=== PATIENT | female | born 1990 ===

== ENCOUNTER 2020-01-29 10:40 | Outpatient (REF) | payer MEDICAID, SELFPAY ==
--- NOTE | 2020-01-29 | US_ITS ---
EXAMINATION: US ABDOMEN COMPLETE CLINICAL INFORMATION: Epigastric pain, heartburn. COMPARISON: CT abdomen and pelvis 04/02/2019. TECHNIQUE: Real-time imaging of the abdominal viscera. FINDINGS: PANCREAS: Not well visualized ABDOMINAL AORTA: The proximal, mid, and distal segments are normal in caliber. INFERIOR VENA CAVA: Visualized portions are normal. LIVER: Liver echotexture is slightly increased questionable for mild fatty infiltration. The liver is normal in size. The liver contour is normal. No focal hepatic lesion. There is no intrahepatic biliary duct dilatation seen. GALLBLADDER: Surgically absent. COMMON BILE DUCT: Normal in caliber measuring 0.4 cm in diameter. RIGHT KIDNEY: Normal. No hydronephrosis. No renal calculi or focal parenchymal lesions. The kidney measures 12.6 cm in maximum dimension. LEFT KIDNEY: Normal. No hydronephrosis. No renal calculi or focal parenchymal lesions. The kidney measures 12.1 cm in maximum dimension. SPLEEN: Normal. The spleen measures 12.1 cm in maximum dimension. FREE FLUID: None. US/US abdomen complete IMPRESSION: Slightly echogenic liver probably representing fatty infiltration. Postcholecystectomy. Nonvisualization of the pancreas. Otherwise unremarkable exam.
== END 2020-01-29 10:41 | disposition home or self-care (01) ==
LOC: HO.US 10:40
PROVIDERS: Visit Provider Registered Nurse
DX: R10.13 Epigastric pain (principal)
CPT/HCPCS: 76700

== ENCOUNTER 2020-01-30 10:45 | Outpatient (REF) | payer MEDICAID, SELFPAY | END 2020-01-30 10:46 | disposition home or self-care (01) | LOC: HO.MDS 10:45 | PROVIDERS: PCP Registered Nurse; Visit Provider Internal Medicine Medical Oncology | DX: D50.9 Iron deficiency anemia, unspecified (principal) | CPT/HCPCS: 96365; 96366; J1200; J1750; Q0163 ==

== ENCOUNTER → 2020-04-02 12:35 | Outpatient (BNVA) | payer MEDICAID, SELFPAY | PROVIDERS: PCP Registered Nurse; Visit Provider Physician Assistant ==

== ENCOUNTER → 2020-04-10 11:45 | Outpatient (BNVA) | payer MEDICAID, SELFPAY | PROVIDERS: PCP Registered Nurse; Visit Provider Physician Assistant ==

== ENCOUNTER → 2020-06-05 13:22 | Outpatient (BNVA) | payer MEDICAID, SELFPAY | PROVIDERS: PCP Registered Nurse; Visit Provider Physician Assistant ==

== ENCOUNTER 2020-06-23 12:13 | Outpatient (REF) | payer MEDICAID, SELFPAY ==
[2020-06-23 12:58] LABS: Basophils Percent Auto 0.3 % (0-2); Hemoglobin 11.3 g/dl (12.0-16.0); Imm Gran Abs Auto 0.02 X10*3/uL (0.00-0.03); Imm Gran Pct Auto 0.3 % (0.0-0.4); Lymphocytes Absolute Auto 1.8 X10*3/uL (1.2-4.9)
[2020-06-23 13:00] LABS: Eosinophils Absolute Auto 0.1 X10*3/uL (0.0-0.4); Eosinophils Percent Auto 2.1 % (0-4); Hematocrit 35.1 % (37-47); Lymphocytes Percent Auto 26.3 % (20-40); Mean Corpuscular HGB Conc 32.2 g/dl (31.0-35.0); Mean Corpuscular Hemoglobin 30.6 pg (27.0-33.0); Mean Corpuscular Volume 95.1 fL (80-98); Mean Platelet Volume 12.8 fL (9.4-12.3); Monocytes Absolute Auto 0.5 X10*3/uL (0.1-1.2); Monocytes Percent Auto 7.2 % (2-11); Neutrophils Absolute Auto 4.2 X10*3/uL (2.0-8.3); Neutrophils Percent Auto 63.8 % (45-73); Platelet Count 155 X10*3/uL (160-400); Red Blood Count 3.69 X10*6/uL (4.20-5.50); Red Cell Distribution Width 12.6 % (11.0-16.0); White Blood Count 6.7 X10*3/uL (4.8-10.8)
[2020-06-23 13:25] LABS: Alanine Aminotransferase 31 U/L (0-31); Albumin Level 3.9 g/dL (3.5-5.0); Alkaline Phosphatase 106 U/L (39-117); Anion Gap 11 (12-20); Aspartate Amino Transferase 16 U/L (5-31); Bilirubin Total 0.2 mg/dL (0.0-1.0); Blood Urea Nitrogen 7 mg/dL (9-16); C Reactive Protein 0.38 mg/dL (< or = 0.50); Calcium 9.2 mg/dL (8.4-10.2); Carbon Dioxide 24 mmol/L (22-29); Chloride 109 mmol/L (96-108); Estimated Glomerular Filt Rate > 60; Glucose Random 109 mg/dL (60-115); Iron 38 mcg/dL (30-160); Percent Iron Saturation 13 % (15-50); Potassium 3.8 mmol/L (3.3-5.1); Sodium 140 mmol/L (135-145); Total Iron Binding Capacity 291 mcg/dL (228-428); Total Protein 6.5 g/dL (6.5-8.0); Unsaturated Iron Binding 253 ug/dL
[2020-06-23 13:41] LABS: Erythrocyte Sedimentation Rate 16 MM/HR (0-20)
[2020-06-23 13:46] LABS: Ferritin 64 ng/mL (10-122); HCG Quantitative < 2 mIU/mL
[2020-06-27 15:26] LABS: Transglutaminase IgA 1 U/mL
[2020-07-03 17:02] LABS: Endomysial IgA Antibody Negative (Negative)
== END 2020-06-23 12:14 | disposition home or self-care (01) ==
LOC: HO.LAB 12:13
PROVIDERS: Absent Provider Physician Assistant; Visit Provider Internal Medicine Medical Oncology
DX: K52.9 Noninfective gastroenteritis and colitis, unspecified (principal); R74.01 Elevation of levels of liver transaminase levels; R10.11 Right upper quadrant pain; D64.9 Anemia, unspecified; R11.0 Nausea
CPT/HCPCS: 36415; 80053; 82728; 83516; 83540; 84702; 85025; 85652; 86140; 86255; 86256

== ENCOUNTER → 2020-07-14 12:15 | Outpatient (BNVA) | payer MEDICAID, SELFPAY | PROVIDERS: Visit Provider Physician Assistant ==

== ENCOUNTER 2021-12-14 10:40 | Outpatient (REF) | payer MEDICAID, SELFPAY ==
--- NOTE | ~2021-12-14 | XR_ITS ---
EXAMINATION: XR CHEST CLINICAL INFORMATION: Abdominal pain COMPARISON: None TECHNIQUE: 2 views of the chest were obtained. FINDINGS: No significant abnormality is noted involving the heart, lungs, mediastinum, bony thorax or soft tissues. XR/XR chest 2V IMPRESSION: Unremarkable examination.
--- NOTE | ~2021-12-14 | XR_ITS ---
EXAMINATION: XR ABDOMEN KUB CLINICAL INDICATION: Abdominal pain COMPARISON: None TECHNIQUE: AP view of the abdomen. FINDINGS: Stool in the colon questionable for mild constipation. No dilated loops of bowel to suggest obstruction. Small pelvic calcifications suggestive of calcified phleboliths. Postcholecystectomy. Bony structures are unremarkable. XR/XR KUB IMPRESSION: Question mild constipation. Otherwise unremarkable exam.
== END 2021-12-14 10:41 | disposition home or self-care (01) ==
LOC: HO.XRAY 10:40
PROVIDERS: PCP Registered Nurse; Visit Provider Registered Nurse
DX: R10.9 Unspecified abdominal pain (principal)
CPT/HCPCS: 71046; 74018

== ENCOUNTER → 2021-12-24 13:58 | Outpatient (BNVA) | payer MEDICAID, SELFPAY | PROVIDERS: PCP Registered Nurse; Visit Provider Physician Assistant | DX: K21.9 Gastro-esophageal reflux disease without esophagitis (principal) | CPT/HCPCS: 99202 ==

== ENCOUNTER 2022-01-14 12:02 | Outpatient (REF) | payer MEDICAID, SELFPAY | END 2022-01-14 12:03 | disposition home or self-care (01) | LOC: HO.LNP 12:02 | PROVIDERS: Visit Provider Physician Assistant | DX: A04.8 Other specified bacterial intestinal infections (principal); K21.9 Gastro-esophageal reflux disease without esophagitis | CPT/HCPCS: 87338; 99212 ==

== ENCOUNTER 2022-07-07 17:09 | Emergency (ER) | payer MEDICAID, SELFPAY ==
[2022-07-07 17:31] VITALS: BP 120/63; PULSE 81; RESP 18; TEMP 36.8; O2SAT 99; BMI 31.6
--- NOTE | 2022-07-07 17:52 | ED_ITS ---
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 Patient states she is now tolerating water. She then goes on to have complaints of full body discomfort with back pain that she states is chronic in nature and she overall feels weak . Related Data Previous Rx's Medication Instructions Recorded omeprazole 20 mg capsule,delayed 20 mg PO DAILY #30 caps 12/24/21 release ondansetron HCl 4 mg tablet 4 mg PO Q8H PRN nausea and 07/08/22 vomiting 4 days #10 tabs Allergies Allergy/AdvReac Type Severity Reaction Status Date / Time No Known Allergies Allergy Verified 12/24/21 14:03 Review of Systems Review of Systems: Pertinent positives and negatives as stated in HPI PMFSH Past Medical History Source: nursing notes reviewed Medical History Anemia Cholecystectomy planned Chronic diarrhea GERD (gastroesophageal reflux disease) Vitamin C deficiency Vitamin D deficiency Surgical History Hx of cholecystectomy Social History Social History Household Members: Spouse and Children Alcohol intake: current Alcohol intake frequency: does not drink Alcohol type: hard liquor Patient Tobacco Use Status: Current someday Tobacco user Cigarettes Per Day: 1 Current occupational status: unemployed Physical Exam Vital Signs: Vital Signs: Last Vital Signs Temp 98.4 F 07/08/22 00:03 Pulse 101 H 07/08/22 00:03 Resp 16 07/08/22 00:03 BP 96/46 L 07/08/22 00:03 Pulse Ox 99 07/08/22 00:03 O2 Del Method Room Air 07/08/22 00:03 BMI result Body Mass Index 31.6 VITAL SIGNS: Reviewed. GENERAL: Well developed, well nourished, in no acute distress. HEAD: Normocephalic/atraumatic EYES: PERRLA, EOMI EARS: Ext canals without abnormality NOSE: Nares patent bilateral OROPHARYNX: no oral lesions noted, posterior pharynx clear NECK: Supple, no adenopathy LUNGS: Normal breath sounds. No adventitious sounds or accessory muscle use. Sp O2<99> CARDIOVASCULAR: Regular rate and rhythm without noted murmurs ABDOMEN: Soft, non-tender, non-distended with bowel sounds. MUSCULOSKELETAL: No tenderness, deformities, or effusions noted on gross inspection. EXTREMITIES: No cyanosis, clubbing or edema. SKIN: Inspection of the skin reveals no rashes NEUROLOGIC: Alert and oriented x 4. Strength and sensation to light touch were grossly intact x 4. Course Course Course Narrative: This is an RME: Additional HPI, ROS, PE not included below will be deferred to primary provider. This is a 13-hxx[age]-female, hx of nephrolithiasis and cholescytectomy, presenting for abdominal pain, nausea, vomiting, and diarrhea x 3 days. Children were sick with nausea/vomiting/diarrhea/fevers 1.5 weeks ago. VSS. No urinary symptoms. Plan: Labs, UA ordered. Medications Administered Discontinued Medications Generic Name Dose Route Start Last Admin Trade Name Freq PRN Reason Stop Dose Admin Acetaminophen 975 mg 07/07/22 22:45 07/07/22 23:24 Acetaminophen 325 Mg Tablet PO 07/07/22 22:46 975 mg ONCE ONE Administration Ketorolac Tromethamine 15 mg 07/07/22 23:13 07/07/22 23:23 Ketorolac Tromethamine 15 Mg/Ml Vial IM 07/07/22 23:14 15 mg ONCE ONE Administration Lidocaine 1 patch 07/07/22 22:45 07/07/22 23:24 Lidocaine 4 % Patch Adh..Patch TRANSDERMA 07/07/22 22:46 1 patch ONCE ONE Administration Protocol Ondansetron HCl 4 mg 07/07/22 22:45 07/07/22 23:25 Ondansetron Odt 4 Mg Tab.Rapdis TRANSLINGU 07/07/22 22:46 4 mg ONCE ONE Administration Medical Decision Making Medical Decision Making MDM Narrative: This is a 32-year-old female who presents with chronic back pain, I do not see any recent emergency room visits, this back pain is atraumatic in nature and she denies any urinary symptoms but has been ask for urinary sample. She is afebrile denies any IVDA. I reviewed all lab work and there are no acute findings to better explain patient's presentation. She has a bottle of water that has been completely finished at her bedside. She is been asked to provide a urine sample but is requesting pain medication. After I completed my evaluation she informed the welding operator that at other facilities she gets morphine. I reviewed all laboratory work, urinalysis is negative for evidence of acute in fection and patient appears to be much more comfortable after having received combination analgesics and lidocaine patch. She is otherwise discharged home with instructions follow-up with her primary care provider. And is presumptively being treated for viral gastroenteritis. Differential Diagnosis Please see the discussion above Lab Data Please see the discussion above 07/07/22 19:15 07/07/22 19:15 Labs: Lab Results 07/07/22 07/07/22 07/08/22 Range/Units 19:15 19:15 00:23 WBC 6.1 (4.8-10.8) X10*3/uL RBC 4.32 (4.20-5.50) X10*6/uL Hgb 12.8 (12.0-16.0) g/dl Hct 39.0 (37.0-47.0) % MCV 90.3 (80.0-98.0) fL MCH 29.6 (27.0-33.0) pg MCHC 32.8 (31.0-35.0) g/dl RDW 12.9 (11.0-16.0) % Plt Count 181 (160-400) X10*3/uL MPV 11.8 (9.4-12.3) fL Immature Gran % (Auto) 0.3 (0.0-0.4) % Neut % (Auto) 86.2 H (45-73) % Lymph % (Auto) 9.0 L (20-40) % [place] % (Auto) 3.0 (2-11) % Eos % (Auto) 1.3 (0-4) % Baso % (Auto) 0.2 (0-2) % Lymph # (Auto) 0.6 L (1.2-4.9) X10*3/uL [place] # (Auto) 0.2 (0.1-1.2) X10*3/uL Eos # (Auto) 0.1 (0.0-0.4) X10*3/uL Baso # (Auto) 0.0 (0.0-0.2) X10*3/uL Abs Immat Gran (auto) 0.02 (0.00-0.03) X10*3/uL Absolute Neuts (auto) 5.3 (2.0-8.3) x10*3/uL Absolute Nucleated RBC 0.000 (0.0-0.012) X10*3/uL Nucleated RBC % (auto) 0.0 (0.0-0.2) /100WBC Sodium 140 (135-145) mmol/L Potassium 3.9 (3.3-5.1) mmol/L Chloride 108 (96-108) mmol/L Carbon Dioxide 24 (22-29) mmol/L Anion Gap 12 (12-20) BUN 9 (9-16) mg/dL Creatinine 0.70 (0.5-1.4) mg/dL Estim Creat Clear Calc 148.9 Estimated GFR > 60 Random Glucose 102 (60-115) mg/dL Calcium 9.8 D (8.4-10.2) mg/dL Magnesium 1.8 (1.6-2.6) mg/dL Total Bilirubin 0.4 (0.0-1.0) mg/dL Direct Bilirubin 0.1 (0.0-0.5) mg/dL AST 18 (5-31) U/L ALT 18 (0-31) U/L Alkaline Phosphatase 94 (39-117) U/L Total Protein 7.1 (6.5-8.0) g/dL Albumin 4.0 (3.5-5.0) g/dL Lipase 21 (8-78) U/L Beta HCG, Quant < 2 mIU/mL Urine Color Yellow Urine Appearance Clear Urine pH 5.5 (5.0-9.0) Ur Specific [place] 1.025 (1.005-1.025) Urine Protein Trace (Neg-Trace) mg/dL Urine Glucose (UA) Negative (Negative) mg/dL Urine Ketones 40 (Negative) mg/dL Urine Blood Negative (Negative) Urine Nitrite Negative (Negative) Ur Leukocyte Esterase Negative (Negative) Independent Interpretation I performed an independent interpretation of an: EKG Interpretation: Sinus tachycardia, HR-101, no STEMI, PA/QRS/QTC is within normal limits. Discharge Plan Discharge Clinical Impression: Chronic back pain, Gastroenteritis Patient Disposition: Home, Self-Care Instructions: Gastroenteritis (ED), Back Pain (ED), Lower Back Exercises (ED) Additional Instructions: 1. Resume all home medications to include your antacid medication. 2. Tylenol 1000 mg, orally, every 6 hours as needed for pain control. Do not exceed 4000 mg within 24 hours. 3. I have given you a prescription for antinausea medication and you should use is to continue to rehydrate yourself. 4. Ibuprofen 400 mg, orally with milk or food, every 6 hours as needed for pain control. 5. Please follow-up with your primary care provider in the next 1-2 days. Return to the ER for any worsening symptoms. Prescriptions: New ondansetron HCl 4 mg tablet 4 mg PO Q8H PRN (Reason: nausea and vomiting) 4 Days Qty: 10 0RF No Action omeprazole 20 mg capsule,delayed release(DR/EC) 20 mg PO DAILY Qty: 30 5RF
[2022-07-07 19:22] LABS: MANUAL DIFF FLAG NO
[2022-07-07 19:25] LABS: Basophils Percent Auto 0.2 % (0-2); Eosinophils Absolute Auto 0.1 X10*3/uL (0.0-0.4); Eosinophils Percent Auto 1.3 % (0-4); Hemoglobin 12.8 g/dl (12.0-16.0); Imm Gran Abs Auto 0.02 X10*3/uL (0.00-0.03); Imm Gran Pct Auto 0.3 % (0.0-0.4); Lymphocytes Absolute Auto 0.6 X10*3/uL (1.2-4.9); Mean Corpuscular HGB Conc 32.8 g/dl (31.0-35.0); Mean Corpuscular Hemoglobin 29.6 pg (27.0-33.0); Mean Corpuscular Volume 90.3 fL (80.0-98.0); Mean Platelet Volume 11.8 fL (9.4-12.3); Monocytes Absolute Auto 0.2 X10*3/uL (0.1-1.2); Neutrophils Absolute Auto 5.3 x10*3/uL (2.0-8.3); Neutrophils Percent Auto 86.2 % (45-73); Platelet Count 181 X10*3/uL (160-400); Red Blood Count 4.32 X10*6/uL (4.20-5.50); Red Cell Distribution Width 12.9 % (11.0-16.0); White Blood Count 6.1 X10*3/uL (4.8-10.8)
[2022-07-07 19:41] LABS: Alanine Aminotransferase 18 U/L (0-31); Alkaline Phosphatase 94 U/L (39-117); Anion Gap 12 (12-20); Aspartate Amino Transferase 18 U/L (5-31); Bilirubin Direct 0.1 mg/dL (0.0-0.5); Bilirubin Total 0.4 mg/dL (0.0-1.0); Blood Urea Nitrogen 9 mg/dL (9-16); Calcium 9.8 mg/dL (8.4-10.2); Carbon Dioxide 24 mmol/L (22-29); Chloride 108 mmol/L (96-108); Creatinine Clr Calc Pharmacy 148.9; Estimated Glomerular Filt Rate > 60; Glucose Random 102 mg/dL (60-115); Magnesium 1.8 mg/dL (1.6-2.6); Potassium 3.9 mmol/L (3.3-5.1); Sodium 140 mmol/L (135-145); Total Protein 7.1 g/dL (6.5-8.0)
[2022-07-07 20:12] LABS: Lipase 21 U/L (8-78)
--- NOTE | 2022-07-07 21:34 | ECG_ITS ---
Test Reason : CHEST PAIN Blood Pressure : / mmHG Vent. Rate : 101 BPM Atrial Rate : 101 BPM P-R Int : 166 ms QRS Dur : 088 ms QT Int : 348 ms P-R-T Axes : 062 -10 045 degrees QTc Int : 451 ms Sinus tachycardia Otherwise normal ECG No previous ECGs available Referred By: Generic ED Physician Electronically Signed By:KALPESH FRY MD
--- NOTE | 2022-07-07 21:34 | PC.NURSE ---
pt was found on the floor in the waiting room bathroom. pt states she did hit her head. pt is alert and oriented x3 no injury noted.
--- NOTE | 2022-07-07 22:20 | PC.NURSE ---
PT C/O ABD PAIN X 2 DAYS WITH N/V. WAS IN WR, EXPERIENCED A FALL FELT WEAK AND LEGS GAVE OUT DENIES SYNCOPE. REPORTEDLY, WHEN STAFF ARRIVED, PT WAS ON THE FLOOR. PLACED IN HALLWAY BED, PT REQUESTING FLUIDS, ADVISED SHE WILL REMAIN NPO UNTIL EVALUATED BY A PROVIDER. REPORTS GENERALIZED PAIN.
[2022-07-07 23:01] LABS: HCG Quantitative < 2 mIU/mL
[2022-07-07] MEDS: Ketorolac Tromethamine 15 MG/ML VIAL IM (23:23)
[2022-07-07] MEDS: Acetaminophen 325 MG TABLET 975 MG PO (23:24)
[2022-07-07] MEDS: Lidocaine 4 % Patch ADH..PATCH 1 PATCH TRANSDERMA (23:24)
[2022-07-07] MEDS: Ondansetron ODT 4 MG TAB.RAPDIS TRANSLINGU (23:25)
--- NOTE | 2022-07-07 23:30 | PC.NURSE ---
Pt ca&ox3, no signs of distress. Pt reports 10/10 lower back pain. Pt medicated per apr. Will continue to monitor.
[2022-07-08 00:03] VITALS: BP 96/46; PULSE 101; RESP 16; TEMP 36.9; O2SAT 99
[2022-07-08 00:31] LABS: Appearance Urine Clear; Color Urine Yellow; Glucose Urine UA Negative (Negative); Leukocyte Esterase Urine Negative (Negative); Nitrite Urine Negative (Negative); PH 5.5 (5.0-9.0); Specific Gravity - Urine 1.025 (1.005-1.025); Urine Blood Negative (Negative); Urine Ketones 40 mg/dL (Negative); Urine Protein Trace mg/dL (Neg-Trace)
--- NOTE | 2022-07-08 00:42 | PC.NURSE ---
Pt resting comfortably, reports 7/10 pain. No signs of distress. Will continue to monitor.
== END 2022-07-08 01:25 | disposition home or self-care (01) ==
PROVIDERS: Physician Assistant Medical; Emergency Provider Student in an Organized Health Care Education/Training Program
DX: G89.29 Other chronic pain (principal); M54.50 Low back pain, unspecified; K52.9 Noninfective gastroenteritis and colitis, unspecified; R11.2 Nausea with vomiting, unspecified; F17.210 Nicotine dependence, cigarettes, uncomplicated
CPT/HCPCS: 36415; 80048; 80076; 81003; 83690; 83735; 84702; 85025; 93005; 96372; 99284; 99285; J1885

== ENCOUNTER 2022-10-28 11:19 | Outpatient (REF) | payer MEDICAID, SELFPAY ==
[2022-10-28 13:01] LABS: MANUAL DIFF FLAG NO
[2022-10-28 13:34] LABS: Basophils Absolute Auto 0.1 X10*3/uL (0.0-0.2); Basophils Percent Auto 0.6 % (0-2); Eosinophils Absolute Auto 0.2 X10*3/uL (0.0-0.4); Eosinophils Percent Auto 2.7 % (0-4); Hematocrit 38.4 % (37.0-47.0); Hemoglobin 12.8 g/dl (12.0-16.0); Imm Gran Abs Auto 0.03 X10*3/uL (0.00-0.03); Imm Gran Pct Auto 0.4 % (0.0-0.4); Lymphocytes Absolute Auto 2.2 X10*3/uL (1.2-4.9); Lymphocytes Percent Auto 26.2 % (20-40); Mean Corpuscular HGB Conc 33.3 g/dl (31.0-35.0); Mean Corpuscular Hemoglobin 30.4 pg (27.0-33.0); Mean Corpuscular Volume 91.2 fL (80.0-98.0); Mean Platelet Volume 13.1 fL (9.4-12.3); Monocytes Absolute Auto 0.6 X10*3/uL (0.1-1.2); Monocytes Percent Auto 6.6 % (2-11); Neutrophils Absolute Auto 5.3 x10*3/uL (2.0-8.3); Neutrophils Percent Auto 63.5 % (45-73); Platelet Count 191 X10*3/uL (160-400); Red Blood Count 4.21 X10*6/uL (4.20-5.50); White Blood Count 8.3 X10*3/uL (4.8-10.8)
[2022-10-28 13:35] LABS: Estimated Average Glucose 108 mg/dL; Hemoglobin A1c % 5.4 % (<6.0)
[2022-10-28 13:39] LABS: Iron 50 mcg/dL (30-160); Percent Iron Saturation 14 % (15-50); Total Iron Binding Capacity 348 mcg/dL (228-428); Unsaturated Iron Binding 298 ug/dL
[2022-10-28 13:47] LABS: Ferritin 31 ng/mL (10-122)
== END 2022-10-28 11:20 | disposition home or self-care (01) ==
LOC: HO.HHCL 11:19
PROVIDERS: Visit Provider Registered Nurse
DX: Z00.00 Encounter for general adult medical examination without abnormal findings (principal); D50.0 Iron deficiency anemia secondary to blood loss (chronic)
CPT/HCPCS: 36415; 82728; 83036; 83540; 85025

== ENCOUNTER 2023-01-14 14:55 | Outpatient (REF) | payer MEDICAID, SELFPAY ==
[2023-01-14 16:03] LABS: MANUAL DIFF FLAG NO
[2023-01-14 16:16] LABS: Basophils Percent Auto 0.3 % (0-2); Eosinophils Absolute Auto 0.3 X10*3/uL (0.0-0.4); Eosinophils Percent Auto 2.6 % (0-4); Hematocrit 38.1 % (37.0-47.0); Hemoglobin 12.4 g/dl (12.0-16.0); Imm Gran Abs Auto 0.03 X10*3/uL (0.00-0.03); Imm Gran Pct Auto 0.3 % (0.0-0.4); Lymphocytes Absolute Auto 2.6 X10*3/uL (1.2-4.9); Lymphocytes Percent Auto 26.6 % (20-40); Mean Corpuscular HGB Conc 32.5 g/dl (31.0-35.0); Mean Platelet Volume 13.2 fL (9.4-12.3); Monocytes Absolute Auto 0.9 X10*3/uL (0.1-1.2); Monocytes Percent Auto 8.9 % (2-11); Neutrophils Absolute Auto 5.9 x10*3/uL (2.0-8.3); Neutrophils Percent Auto 61.3 % (45-73); Platelet Count 172 X10*3/uL (160-400); Red Blood Count 4.14 X10*6/uL (4.20-5.50); Red Cell Distribution Width 12.9 % (11.0-16.0); White Blood Count 9.6 X10*3/uL (4.8-10.8)
[2023-01-14 17:03] LABS: Alanine Aminotransferase 17 U/L (0-31); Alkaline Phosphatase 106 U/L (39-117); Anion Gap 9 (12-20); Aspartate Amino Transferase 14 U/L (5-31); Bilirubin Total 0.4 mg/dL (0.0-1.0); Blood Urea Nitrogen 13 mg/dL (9-16); Calcium 9.9 mg/dL (8.4-10.2); Carbon Dioxide 27 mmol/L (22-29); Chloride 108 mmol/L (96-108); Estimated Glomerular Filt Rate > 60; Glucose Random 71 mg/dL (60-115); Potassium 3.5 mmol/L (3.3-5.1); Sodium 140 mmol/L (135-145); Total Protein 7.4 g/dL (6.5-8.0)
[2023-01-14 17:17] LABS: TSH reflex Free T4 0.83 uIU/mL (0.32-4.0)
== END 2023-01-14 14:56 | disposition home or self-care (01) ==
LOC: HO.HHCL 14:55
PROVIDERS: Visit Provider Nurse Practitioner
DX: E66.3 Overweight (principal); D50.0 Iron deficiency anemia secondary to blood loss (chronic); R53.83 Other fatigue
CPT/HCPCS: 36415; 80053; 84443; 85025

== ENCOUNTER 2023-07-22 14:45 | Outpatient (REF) | payer MEDICAID, SELFPAY ==
[2023-07-22 16:17] LABS: MANUAL DIFF FLAG NO
[2023-07-22 16:20] LABS: Basophils Percent Auto 0.6 % (0-2); Eosinophils Absolute Auto 0.2 X10*3/uL (0.0-0.4); Eosinophils Percent Auto 3.2 % (0-4); Hematocrit 37.5 % (37.0-47.0); Hemoglobin 12.5 g/dl (12.0-16.0); Imm Gran Abs Auto 0.01 X10*3/uL (0.00-0.03); Imm Gran Pct Auto 0.1 % (0.0-0.4); Lymphocytes Absolute Auto 2.7 X10*3/uL (1.2-4.9); Lymphocytes Percent Auto 37.4 % (20-40); Mean Corpuscular HGB Conc 33.3 g/dl (31.0-35.0); Mean Corpuscular Hemoglobin 30.6 pg (27.0-33.0); Mean Corpuscular Volume 91.9 fL (80.0-98.0); Mean Platelet Volume 12.9 fL (9.4-12.3); Monocytes Absolute Auto 0.5 X10*3/uL (0.1-1.2); Monocytes Percent Auto 6.7 % (2-11); Neutrophils Absolute Auto 3.7 x10*3/uL (2.0-8.3); Platelet Count 181 X10*3/uL (160-400); Red Blood Count 4.08 X10*6/uL (4.20-5.50); Red Cell Distribution Width 13.6 % (11.0-16.0); White Blood Count 7.1 X10*3/uL (4.8-10.8)
[2023-07-22 16:40] LABS: Estimated Average Glucose 108 mg/dL; Hemoglobin A1c % 5.4 % (<6.0)
[2023-07-22 16:59] LABS: Anion Gap 12 (12-20); Blood Urea Nitrogen 8 mg/dL (9-16); Calcium 10.1 mg/dL (8.4-10.2); Carbon Dioxide 25 mmol/L (22-29); Chloride 107 mmol/L (96-108); Estimated Glomerular Filt Rate > 60; Glucose Random 82 mg/dL (60-115); Potassium 3.5 mmol/L (3.3-5.1); Sodium 140 mmol/L (135-145)
[2023-07-22 17:14] LABS: TSH reflex Free T4 0.63 uIU/mL (0.32-4.0)
== END 2023-07-22 14:46 | disposition home or self-care (01) ==
LOC: HO.HHCL 14:45
PROVIDERS: Visit Provider Nurse Practitioner
DX: R53.1 Weakness (principal)
CPT/HCPCS: 36415; 80048; 83036; 84443; 85025

== ENCOUNTER → 2023-10-05 13:38 | Outpatient (RCR) | payer MEDICAID, SELFPAY ==
[2020-01-17 10:28] VITALS: BP 111/68; PULSE 83; RESP 18; TEMP 35.8; O2SAT 97; BMI 27.3
[2020-01-17 10:56] LABS: MANUAL DIFF FLAG NO
--- NOTE | 2020-01-17 11:02 | MHC.HEMONC ---
Patient seen today for consult. In house assistant sales center manager used. Provider seen patient. Labs drawn. IV Iron Dextran ordered. Awaiting lab results. Will call the patient with date for infusion when booked.
[2020-01-17 11:04] LABS: Basophils Percent Auto 0.5 % (0-2); Eosinophils Absolute Auto 0.1 X10*3/uL (0.0-0.4); Eosinophils Percent Auto 1.8 % (0-4); Hematocrit 33.2 % (37-47); Imm Gran Abs Auto 0.01 X10*3/uL (0.00-0.03); Imm Gran Pct Auto 0.2 % (0.0-0.4); Lymphocytes Absolute Auto 1.6 X10*3/uL (1.2-4.9); Lymphocytes Percent Auto 25.8 % (20-40); Mean Corpuscular HGB Conc 30.1 g/dl (31.0-35.0); Mean Corpuscular Hemoglobin 23.9 pg (27.0-33.0); Mean Corpuscular Volume 79.2 fL (80-98); Mean Platelet Volume 12.1 fL (9.4-12.3); Monocytes Absolute Auto 0.5 X10*3/uL (0.1-1.2); Monocytes Percent Auto 7.4 % (2-11); Neutrophils Absolute Auto 3.9 X10*3/uL (2.0-8.3); Neutrophils Percent Auto 64.3 % (45-73); Platelet Count 244 X10*3/uL (160-400); Red Blood Count 4.19 X10*6/uL (4.20-5.50); Red Cell Distribution Width 19.3 % (11.0-16.0); White Blood Count 6.1 X10*3/uL (4.8-10.8)
[2020-01-17 11:58] LABS: Alanine Aminotransferase 11 U/L (0-31); Albumin Level 4.1 g/dL (3.5-5.0); Alkaline Phosphatase 103 U/L (39-117); Anion Gap 13 (12-20); Aspartate Amino Transferase 13 U/L (5-31); Bilirubin Total 0.3 mg/dL (0.0-1.0); Blood Urea Nitrogen 10 mg/dL (9-16); Calcium 9.2 mg/dL (8.4-10.2); Carbon Dioxide 25 mmol/L (22-29); Chloride 106 mmol/L (96-108); Estimated Glomerular Filt Rate > 60; Glucose Random 92 mg/dL (60-115); Iron 15 mcg/dL (30-160); Percent Iron Saturation 3 % (15-50); Potassium 4.3 mmol/l (3.3-5.1); Sodium 140 mmol/L (135-145); Total Iron Binding Capacity 489 mcg/dL (228-428); Unsaturated Iron Binding 474 ug/dL
[2020-01-17 12:21] LABS: Ferritin 2 ng/mL (10-122)
--- NOTE | 2020-01-17 13:35 | PM.HEMONCCN ---
Subjective - Subjective Consult date: 01/17/20 Requesting Physician: KYLIE WEBB. Primary Care Provider: Kylie Anderson NP Medical Summary: DIAGNOSIS: IRON DEFICIENCY ANEMIA. HPI - Consult Narrative Narrative: Sari Ray is a pleasant 29 year old lady who has been really fatigued for almost a year now. She does not have a good appetite. She has lost a couple of lb. She has craving for ice. She complains of nausea but no vomiting. She has acid reflux. She has diarrhea. Her periods used to be heavy however she had an IUD placed back in September since then she has just been spotting. Review of her labs from April 02: WBC 7.6 (Apr 02 ABS NEUT COUNT 4.6 (Apr 02 RBC 3.84 L (Apr 02 HGB 11.4 L (Apr 02 HCT 33.9 L (Apr 02 MCV 88.4 (Apr 02 MCH 29.7 (Apr 02 MCHC 33.6 (Apr [address] 164 (Apr 02. 12/03: WBC 5.9, HGB 9.4, HCT 31.1, PLT 218. Iron studies: 38/480/09/09. B12: 340. Folate: 9. She was given oral iron however when she tries to swallow it causes nausea and vomiting. She has not been able to tolerate it. Review of Systems - Constitutional Reports anorexia, Reports fatigue, Reports lack of energy, Reports poor appetite, Reports weight loss, Denies fever(s) - Eyes Reports system reviewed and no additional complaints, except as documented - ENT Reports system reviewed and no additional complaints, except as documented - Cardiovascular Reports system reviewed and no additional complaints, except as documented - Respiratory Reports no additional respiratory complaints - Gastrointestinal Reports belching, Reports bloating, Reports change in bowel habits, Reports diarrhea, Reports nausea, Denies bright, red blood in stools - Genitourinary Reports no additional female genitourinary complaints - Musculoskeletal Reports joint pain - Integumentary/Breasts Skin/Breast: Reports itching - Neurologic Reports system reviewed and no additional complaints, except as documented - Psychiatric Reports system reviewed and no additional complaints, except as documented - Endocrine Reports no additional endocrine complaints - Hematologic/Lymphatic Reports system reviewed and no additional complaints, except as documented - Allergic/Immunologic Reports system reviewed and no additional complaints, except as documented PMFSH Medical History: Medical History (Last Updated 01/17/20 @ 10:26 by Alee Osorio RN) Anemia Cholecystectomy planned GERD (gastroesophageal reflux disease) Vitamin C deficiency Vitamin D deficiency Functional capacity: independent ambulation Patient : No Home Medications and Allergies Home Medications Medication Instructions Recorded Confirmed Type Vitamin D3 1 tab PO DAILY 01/17/20 01/17/20 History ascorbic acid (vitamin C) [Vitamin 250 mg PO BID 01/17/20 01/17/20 History C] docusate sodium [Colace] 100 mg PO DAILY 01/17/20 01/17/20 History Allergies Allergy/AdvReac Type Severity Reaction Status Date / Time No Known Allergies Allergy Unverified 10/25/19 19:46 Physical Exam Vital signs: Vital Signs Temp 96.4 F L 01/17/20 10:28 Pulse 83 01/17/20 10:28 Resp 18 01/17/20 10:28 BP 111/68 01/17/20 10:28 Pulse Ox 97 01/17/20 10:28 Intake & Output 01/16/20 01/17/20 01/17/20 18:59 06:59 18:59 Other: Weight 96.4 kg Weight 96.4 kg - Constitutional Present: no acute distress, mild distress - Routine HEENT Exam Head: Present: normal inspection ENT: Present: mucous membranes moist - Routine Neck Exam Present: supple - Routine Respiratory Exam Present: CTAB - Routine Cardiovascular Exam Cardiovascular: Present: RRR, S1, S2 - Routine Abdominal Exam Present: soft, nontender - Routine Rectal Exam Patient deferred: digital exam - Routine Extremities Exam Present: nontender - Routine Skin Exam Present: intact - Routine Neurological Exam Present: alert, oriented X3 - Detailed Neurological Exam: Coma Scale Eye Opening: Spontaneous (4) Verbal Response: Oriented (5) Motor Response: Obeys commands (6) Gregorio Coma Scale Total: 15 - Routine Psychiatric Exam Present: normal affect Hem/Onc Consult Result - Labs CBC & Chem 7: 01/17/20 10:50 01/17/20 10:50 Labs: Short CBC 01/17/20 Range/Units 10:50 WBC 6.1 (4.8-10.8) X10*3/uL Hgb 10.0 L (12.0-16.0) g/dl Hct 33.2 L (37-47) % Plt Count 244 (160-400) X10*3/uL BMP 01/17/20 10:50 Sodium 140 Potassium 4.3 Chloride 106 Carbon Dioxide 25 BUN 10 Creatinine 0.67 Calcium 9.2 Liver Function 01/17/20 Range/Units 10:50 Total Bilirubin 0.3 (0.0-1.0) mg/dL AST 13 (5-31) U/L ALT 11 (0-31) U/L Alkaline Phosphatase 103 (39-117) U/L Albumin 4.1 (3.5-5.0) g/dL Assessment and Plan (1) Iron (Fe) deficiency anemia Status: Acute This is a pleasant 29-year-old lady with history of Microcytic Hypochromic Anemia. Iron studies are consistent with iron deficiency anemia. Diagnosis most likely is iron deficiency anemia: She does have a history of heavy periods, that is most likely the cause. Her period is normal now however she likely has had a deficit over the past several months and has not been able to replete. She is intolerant to oral iron. DIFFERENTIAL DIAGNOSIS: 2. IRON MALABSORPTION: From something like celiac disease. I checked translucent IgA: Less than 1. 3. HEMOLYTIC ANEMIA: Hemolytic Screen is normal. 4. B12 FOLATE DEFICIENCY: Levels are normal. PLAN: I repeated her iron studies, they came back low: . Will give her IV iron. I offered her total dose infusion versus Ferrlecit. She picked the former. Will arrange it in short stay in the near future. She will return in 3 months for a follow-up visit. Thank you CC: Dr. Kylie Webb.
[2020-01-20 21:37] LABS: Transglutaminase IgA 1 U/mL
--- NOTE | 2020-01-28 09:31 | MHC.HEMONCMA ---
Patient needs to have IV Dextran, Mauritian speaking only patient, I had Iris call her with the dates, patient chose 01/30/2020 at 8am. I will let Danielle know.
== END | disposition home or self-care (01) ==
LOC: HO.ONC 01-17 10:03
PROVIDERS: PCP Registered Nurse; Referring Provider Registered Nurse; Visit Provider Internal Medicine Medical Oncology
DX: D50.9 Iron deficiency anemia, unspecified (principal)
CPT/HCPCS: 36415; 80053; 82728; 83516; 83540; 85025; 99204

== ENCOUNTER 2023-12-02 11:38 | Outpatient (REF) | payer MEDICAID, SELFPAY ==
--- NOTE | ~2023-12-02 | XR_ITS ---
EXAMINATION: XR CHEST CLINICAL INFORMATION: Shortness of breath. COMPARISON: Chest radiograph dated 12/14/2021. TECHNIQUE: 2 views of the chest were obtained. FINDINGS: The lungs are clear. The cardiomediastinal silhouette is normal in size. There is no pleural effusion or pneumothorax. No acute osseous abnormality. XR/XR chest 2V IMPRESSION: No acute cardiopulmonary findings. Electronically signed by: Neal Ballesteros MD 12/02/2023 12:46 PM EDT
--- NOTE | ~2023-12-02 | XR_ITS ---
EXAMINATION: XR LUMBAR SPINE CLINICAL INFORMATION: Lumbar radiculopathy. COMPARISON: Lumbar spine radiographs dated 03/01/2019. TECHNIQUE: AP, lateral, coned-down, and bilateral oblique views of the lumbar spine. FINDINGS: There is Castellvi type IIA transitional anatomy at the lumbosacral junction. The lumbar lordosis is maintained. No acute fracture or subluxation. No loss of vertebral body height. Mild loss of intervertebral disc height redemonstrated at L5-S1, unchanged. No concerning lytic or blastic osseous lesion. Right upper quadrant surgical clips are redemonstrated. Unremarkable facets. XR/XR lumbar spine 4V min IMPRESSION: 1. Transitional anatomy at the lumbosacral junction. 2. Minimal degenerative disc disease at L5-S1, unchanged. Electronically signed by: Neal Ballesteros MD 12/02/2023 12:49 PM EDT
== END 2023-12-02 11:39 | disposition home or self-care (01) ==
LOC: HO.HHCX 11:38
PROVIDERS: Visit Provider Nurse Practitioner
DX: M54.16 Radiculopathy, lumbar region (principal); R06.02 Shortness of breath
CPT/HCPCS: 71046; 72110

== ENCOUNTER 2024-05-23 16:50 | Outpatient (REF) | payer MEDICAID, SELFPAY ==
--- OUTSIDE RECORDS SUMMARY | 2024-05-23 18:22 | XMS_ITS | Encounter Summary ---
Author Organization [employer] Address [address] [place] [address] Care Team Providers Care Forensic Pathologist Name Role Phone Ninoska Velez NP Primary Care Provider [phone] Reason for Visit * Reason Onset Date Comments Reschedule 07/29/2023 Encounter Details Date Type Department Care Team ([facility] Contact Info) Description 07/29/2023 Telephone [facility] [address] [place] [address] Ninoska Velez NP [address] [place] [address] Reschedule Social History Tobacco Use Types Packs/Day Years Used Date Smoking Tobacco: Never Smokeless Tobacco: Never Alcohol Use Standard Drinks/Week Comments Yes 1 (1 standard drink = 0.6 oz pur e alcohol) once a month Depression Answer Date Recorded Patient Health Questionnaire-9 Score 10 07/22/2023 Patient Health Questionnaire-9 Score 10 07/22/2023 Last PHQ-9: Questionnaire Data Not on file 0 07/22/2023 Housing Stability Answer Date Recorded What is your housing situation today? I have housing today, but I am worried about losing housing in the future 07/22/[address] you li ve. Do you have problems with any of the following? Mold 07/22/2023 Food Insecurity Answer Date Recorded Within the past 12 months, y ou worried that your food would run out before you got money to buy more: Sometimes True 2023 Within the past 12 months,th e food you bought just didn't last and you didn't have enough money to get more: Sometimes True 07/22/2023 Transportation Answer Date Recorded In the past 12 months, has l ack of transportation kept you from medical appts, meetings, work or from getting things needed for daily living? No 07/22/2023 Utilities Answer Date Recorded In the past 12 months, has t he electric, gas, oil or water company threatened to shut off services in your home? Yes 07/22/2023 Depression Answer Date Recorded Patient Health Questionnaire-2 Score 2 07/22/2023 Comments Unknown Sex and Gender Information Value Date Recorded Sex Assigned at Female 12/07/2021 10:36 AM EDT Legal Sex Female 10:36 AM EDT Gender Identity Female 12/07/2021 10:36 AM EDT Sexual Orientation Straight 12/07/2021 10 :36 AM EDT documented as of this encounter Miscellaneous Notes * Telephone Encounter - Isabella Junior - 07/29/2023 3:39 PM EDT Tc from pt requesting to reschedule 07/28 Derm appointment. Please contact pt at [phone] documented in this encounter Plan of Treatment Upcoming Encounters Date Type Department Care Team (Late st Contact Info) Description 06/04/2024 11:00 AM EDT Office Visit [facility] [address] [place] [id number] Ninoska Velez NP [address] [place] [address] 06/25/2024 11:15 AM EDT Office Visit [facility] OPTOM[facility] [address] [place] [address] Hannah Cohen OD [address] [place] [address] 07/20/2024 11:45 AM EDT Office Visit [facility] [address] [place] [address] Mercedes Christianson MD [address] [place] [address] documented as of this encounter Visit Diagnoses Not on filedocumented in this encounter Additional Health Concerns Assessment Noted Time PHQ-9 Depression Total Score: 10 024 2:44 PM EDT documented as of this encounter Care Teams Forensic Pathologist Relationship Specialty Start Date End Date Ninoska Velez NP [address] [place] [address] PCP - General Family Medicine 11/11/22 documented as of this encounter
--- OUTSIDE RECORDS SUMMARY | 2024-05-23 18:22 | XMS_ITS | Encounter Summary ---
Author Organization [employer] Address [address] [place] [address] [address] [place] [address] Care Team Providers Care Mat Man Name Role Phone Ninoska Velez NP Primary Care Provider [phone] Reason for Visit * Reason Onset Date Comments Medication Question 04/28/2023 Encounter Details Date Type Department Care Team ([facility] st Contact Info) Description 04/28/2023 Telephone [facility] [address] [place] [address] Ninoska Velez NP [address] [place] [address] Medication Question Social History Tobacco Use Types Packs/Day Years Used Date Smoking Tobacco: Never Smokeless Tobacco: Never Alcohol Use Standard Drinks/Week Comments Yes 1 (1 standard drink = 0.6 oz pur e alcohol) once a month Depression Answer Date Recorded Patient Health Questionnaire-9 Score 13 12/02/2022 Patient Health Questionnaire-9 Score 13 12/02/2022 Last PHQ-9: Questionnaire Data Not on file 1 Depression Answer Date Recorded Patient Health Questionnaire-2 Score 1 01/14/2023 Comments Unknown Sex and Gender Information Value Date Recorded Sex Assigned at Female 12/07/2021 10:36 AM EDT Legal Sex Female 10:36 AM EDT Gender Identity Female 12/07/2021 10:36 AM EDT Sexual Orientation Straight 12/07/2021 10 :36 AM EDT documented as of this encounter Miscellaneous Notes * Telephone Encounter - Chino Rodriguez RN - 05/02/2023 8:47 AM EDT Please review and advise for below message, RN cannot see any notes regarding request. * Telephone Encounter - Alan Berger - 04/28/2023 3:41 PM EDT Tc from patient requesting the status of the medication Naproxen states the provider was suppose togenerate script on last office visit appt for pain however verse writer does not see anything on patientschart documented in this encounter Plan of Treatment Upcoming Encounters Date Type Department Care Team (Late st Contact Info) Description 06/04/2024 11:00 AM EDT Office Visit [facility]INE [address] [place] [address] Ninoska Velez NP [address] [place] [address] 06/25/2024 11:15 AM EDT Office Visit [facility] OPTOMETRY [address] [place] [address] Hannah Cohen, OD [address] [place] [address] 07/20/2024 11:45 AM EDT Office Visit [facility] MED[facility]INE [address] [place] [address] Mercedes Christianson MD [address] [place] [address] documented as of this encounter Visit Diagnoses Not on filedocumented in this encounter Additional Health Concerns Assessment Noted Time PHQ-9 Depression Total Score: 13 023 9:28 AM EDT documented as of this encounter Care Teams Mat Man Relationship Specialty Start Date End Date Ninoska Velez NP [address] [place] [address] PCP - General Family Medicine 11/11/22 documented as of this encounter
--- OUTSIDE RECORDS SUMMARY | 2024-05-23 18:22 | XMS_ITS | Encounter Summary ---
Author Organization [employer] Address [address] [facility] [address] [place] [address] Care Team Providers Care Junior Analyst Name Role Phone Ninoska Velez NP Primary Care Provider [phone] Encounter Details Date Type Department Care Team ([facility] st Contact Info) Description 03/02/2024 Orders Only [facility] [address] [place] [address] ProviderJose Luis MD Social History Tobacco Use Types Packs/Day Years [...] AM EDT documented as of this encounter Plan of Treatment Upcoming Encounters Date Type Department Care Team (Late st Contact Info) Description 06/04/2024 11:00 AM EDT Office Visit [facility] [address] [place] [address] Ninoska Velez NP [address] [place] [address] 06/25/2024 11:15 AM EDT Office Visit [facility] OPTOMETRY [address] [place] [address] TarkaHannah, OD [address] [place] [address] 07/20/2024 11:45 AM EDT Office Visit [facility] [address] [place] [address] Mercedes Christainson MD [address] [place] [address] documented as of this encounter Procedures Procedure Name Priority Date/Time Associated Diagnosis Comments HM PAP/HPV Routine 05/08/2021 3:23 PM EDT documented in this encounter Results * HM PAP/HPV (05/08/2021 3:23 PM EDT) us Historical Provider HEALTH MAINTENANCE Final Result [facility] [address] [place] [address] documented in this encounter Visit Diagnoses Not on filedocumented in this encounter Additional Health Concerns Assessment Noted Time PHQ-9 Depression Total Score: 10 07/21/ 024 2:44 PM EDT documented as of this encounter Care Teams Junior Analyst Relationship Specialty Start Date End Date Ninoska Velez NP [address] [place] [address] PCP - General Family Medicine 11/11/22 documented as of this encounter
--- OUTSIDE RECORDS SUMMARY | 2024-05-23 18:22 | XMS_ITS | Encounter Summary ---
Author Organization [employer] Address [address] [place] [address] [address] [place] [address] Care Team Providers Care Loom Mechanic Name Role Phone Ninoska Velez NP Primary Care Provider [phone] Reason for Visit * Reason Onset Date Comments Appointment Request 04/05/2023 Encounter Details Date Type Department Care Team ([facility] st Contact Info) Description 04/05/2023 Telephone [facility]INE [address] [place] [address] Ninoska Velez NP [address] [place] [address] Appointment Request Social History Tobacco Use Types Packs/Day Years [...] Telephone Encounter - Chino Rodriguez RN - 04/05/2023 2:59 PM EST T?C to pt. For below message, pt. Reschedule for apt. On 04/20/2023, pt. Verbally agreed and understood. * Telephone Encounter - Alan Berger - 04/05/2023 2:29 PM EST Tc from patient calling to cancel and reschedule appt for 04/07 song writer did cancel per patients request documented in this encounter Plan of Treatment Upcoming Encounters Date Type Department Care Team (Late st Contact Info) Description 06/04/2024 11:00 AM EDT Office Visit [facility] [address] [place] [address] Ninoska Velez NP [address] [place] [address] 06/25/2024 11:15 AM EDT Office Visit [facility] OPTOMETRY [address] [place] [address] TarHannah steve, OD [address] [place] [address] 07/20/2024 11:45 AM EDT Office Visit [facility] [address] [place] [address] Mercedes Christianson MD [address] [place] [address] documented as of this encounter Visit Diagnoses Not on filedocumented in this encounter Additional Health Concerns Assessment Noted Time PHQ-9 Depression Total Score: 13 023 9:28 AM EDT documented as of this encounter Care Teams Loom Mechanic Relationship Specialty Start Date End Date Ninoska Veelz NP [address] [place] [address] PCP - General Family Medicine 11/11/22 documented as of this encounter
--- OUTSIDE RECORDS SUMMARY | 2024-05-23 18:22 | XMS_ITS | Encounter Summary ---
Author Organization [employer] Address [address] [place] [address] [address] [address] Care Team Providers Care Assessment Manager Name Role Phone Ninoska Velez NP Primary Care Provider [phone] Reason for Referral * Imaging (Urgent) - Authorized Specialty Diagnoses / Procedures Referred By Contac t Referred To Contact Radiology Diagnoses Pelvic pain Procedures Us Pelvis complete Vandana Fong CNM [address] [place] [address] Phone: tel: fax: [address] Phone: tel: fax: Referral ID Status Reason Start Date Expiration Date V isits Requested Visits Authorized [id number] Authorized 05/23/2024 05/23/2025 1 1 * Imaging (Urgent) - Authorized Specialty Diagnoses / Procedures Referred By Contac t Referred To Contact Radiology Diagnoses Pelvic pain Procedures US Pelvis Transvaginal Vandana Fong CNM [address] [place] [address] Phone: tel: fax: [address] Phone: tel: fax: Referral ID Status Reason Start Date Expiration Date V isits Requested Visits Authorized [id number] Authorized 05/23/2024 05/23/2025 1 1 * Consultation (Routine) - Pending Review Specialty Diagnoses / Procedures Referred By Ike turner Referred To Contact Genetics Diagnoses Family history of ovarian cancer Vandana Fong CNM [address] [place] [address] Phone: tel: fax: Referral ID Status Reason Start Date Expiration Date Visits Requested Visits Authorized [id number] Pending Review Specialty Services Required 05/23/2024 05/23/2025 1 1 Reason for Visit * Reason Comments Gynecologic Exam Encounter Details Date Type Department Care Team (Latest Contact Info) Description 05/23/2024 10:30 AM EDT Procedure Visit [facility]INE [address] [place] [address] Vandana Fong CNM [address] [place] [address] Routine cervical smear (Primary Dx); Family planning counseling; Pelvic pain; Family history of ovarian cancer Social History Tobacco Use Types Packs/Day Years Used Date Smoking Tobacco: Never Smokeless Tobacco: Never Alcohol Use Standard Drinks/Week Comments Not Currently 1 (1 standard drink = 0.6 oz pur e alcohol) once a month Depression Answer Date Recorded Patient Health Questionnaire-9 Score 8 04/23/2024 Patient Health Questionnaire-9 Score 8 04/23/2024 Last PHQ-9: Questionnaire Data Not on file 0 04/23/2024 Housing Stability Answer Date Recorded What is your housing situation today? I have zachary tillman 03/23/[address] you li ve. Do you have problems with any of the following? None of the above 03/23/2024 Food Insecurity Answer Date Recorded Within the past 12 months, y ou worried that your food would run out before you got money to buy more: Never True 03/23/2024 Within the past 12 months,th e food you bought just didn't last and you didn't have enough money to get more: Never True Transportation Answer Date Recorded In the past 12 months, has l ack of transportation kept you from medical appts, meetings, work or from getting things needed for daily living? No 07/22/2023 Utilities Answer Date Recorded In the past 12 months, has t he electric, gas, oil or water company threatened to shut off services in your home? No 03/23/2024 Depression Answer Date Recorded Patient Health Questionnaire-2 Score 3 04/23/2024 Internet Access Answer Date Recorded Internet Access Q1 Yes 03/23/2024 Internet Access Q2 Not on file 03/23/2024 Comments No Sex and Gender Information Value Date Recorded Sex Assigned at Female 12/07/2021 10:36 AM EDT Legal Sex Female 10:36 AM EDT Gender Identity Female 12/07/2021 10:36 AM EDT Sexual Orientation Straight 12/07/2021 10 :36 AM EDT documented as of this encounter Last Filed Vital Signs Vital Sign Reading Time Taken Comments Blood Pressure 120/75 05/23/2024 10:54 AM EDT Pulse 57 05/23/2024 10:54 AM EDT Temperature 36.4 ??C (97.6 ??F) 05/23/2024 10:54 AM E DT Respiratory Rate 16 05/23/2024 10:54 AM EDT Oxygen Saturation - - Inhaled Oxygen Concentration - - Weight 105 kg (232 lb 3.2 oz) 05/23/2024 10:54 A M EDT Height 188 cm (6' 2 ) 05/23/2024 10:54 AM EDT Body Mass Index 29.81 05/23/2024 10:54 AM EDT documented in this encounter Progress Notes * Vandana Fong CNM - 05/23/2024 10:30 AM EDT Subjective Patient ID: Sari Ray is a 34 y.o. female who presents for ADMINISTRATIVE INTERN visit Pap NIL/HPV neg 05/2021. On Sronyx (20mcg), happy with method. Had nausea with patch, did not like IUD. Occasional missed/late pill, uses carmella as needed. Denies ACHES. LMP around 04/21/2024. Monthly menses, no heavy flow or severe cramping. 1 AMAB partner x 5y, no safety concerns. Not planning in the next year. Notes occasional pelvic pain, not correlated with cycle. No other vaginal/urinary symptoms. No GI symptoms. Review of Systems Eyes: Negative for visual disturbance. Respiratory: Negative for shortness of breath. Cardiovascular: Negative for chest pain and leg swelling. Gastrointestinal: Negative for constipation, diarrhea, nausea and vomiting. Genitourinary: Positive for pelvic pain. Negative for dyspareunia, dysuria, frequency, genital sores, hematuria, menstrual problem, urgency, vaginal bleeding, vaginal discharge and vaginal pain. No abnormal pap, no abnormal bleeding, no breast pain, no breast mass, no nipple discharge Skin: Negative for color change. Neurological: Negative for headaches. Objective BP 120/75 (BP Location: Left arm, Patient Position: Sitting, BP Cuff Size: Adult) Pulse 57 Temp97.6 ??F (36.4 ??C) (Temporal) Resp 16 Ht 6' 2 (1.88 m) Wt 232 lb 3.2 oz (105 kg) LMP 04/21/2024 (Approximate) BMI 29.81 kg/m?? Physical Exam Constitutional: Appearance: Normal appearance. Chest: Breasts: Right: Normal. No swelling, bleeding, inverted nipple, mass, nipple discharge, skin change or tenderness. Left: Normal. No swelling, bleeding, inverted nipple, mass, nipple discharge, skin change or tenderness. Genitourinary: General: Normal vulva. Labia: Right: No rash, tenderness, lesion or injury. Left: No rash, tenderness, lesion or injury. Vagina: Normal. No signs of injury and foreign body. No vaginal discharge, erythema, tenderness, bleeding or lesions. Cervix: No cervical motion tenderness, discharge, friability, lesion, erythema, cervical bleeding or eversion. Uterus: Normal. Not enlarged and not tender. Adnexa: Right adnexa normal and left adnexa normal. Right: No mass, tenderness or fullness. Left: No mass, tenderness or fullness. Lymphadenopathy: Upper Body: Right upper body: No supraclavicular or axillary adenopathy. Left upper body: No supraclavicular or axillary adenopathy. Neurological: Mental Status: She is alert. Psychiatric: Mood and Affect: Mood normal. Behavior: Behavior normal. Assessment/Plan Diagnoses and all orders for this visit: Routine cervical smear - Pap Smear Cotest 5 years if normal/HPV negative. Family planning counseling Very happy with pill. Would like to continue. ACHES reviewed. Refills sent in, carmella rx'd. Reviewed need to hold oral contraceptive pill x 5d after taking carmlela and use condoms until 7 days after restarting oral contraceptive pill. Report missed menses. Return at any time if interested in other options or thinking about getting . Pelvic pain - US Pelvis Transvaginal; Future - Us Pelvis complete; Future Benign exam today. Will check ultrasound as precaution. Family history of ovarian cancer - Referral to Genetics; Future It sounds like mother is unable/unwilling to get genetics testing. Sari would like to be referred for this. Reviewed oral contraceptive pill as risk reduction for ovarian cancer. Other orders - Sronyx 0.1-20 MG-MCG tablet; Take 1 tablet by mouth Once per day. - ulipristal (Carmella) 30 mg tablet; Take one tablet by mouth up to five days after sex. Do not use more than once per menstrual cycle. Wait 5 days to restart control pill, use condoms until 7 days after restarting pill documented in this encounter Plan of Treatment Upcoming Encounters Date Type Department Care Team (Late st Contact Info) Description 06/04/2024 11:00 AM EDT Office Visit [facility] MEDICINE [address] [place] [address] Ninoska Velez NP [address] [place] [address] 06/25/2024 11:15 AM EDT Office Visit [facility] OPTOMETRY [address] [place] [address] Hannah Cohen OD [address] [place] [address] 07/20/2024 11:45 AM EDT Office Visit [facility] MEDICINE [address] [place] [address] Mercedes Christianson MD [address] [place] [address] Scheduled Orders Name Type Priority Associated Diagnoses Order Schedule Pap Smear Pathology and Cytology Routine Routine cervical smear Ordered: 05/23/2024 US Pelvis Transvaginal Imaging Urgent Pelvic pain Expected: 05/23/2024, Expires: 05/23/2025 Us Pelvis complete Imaging Urgent Pelvic pain Expected: 05/23/2024, Expires: 05/23/2025 Scheduled Referrals Name Type Priority Associated Diagnoses Orde r Schedule Referral to Genetics Outpatient Referral Routine Family history of ovarian cancer Expected: 05/23/2024 (Approximate), Expires: 05/23/2025 documented as of this encounter Visit Diagnoses Diagnosis Routine cervical smear- Primary Screening for malignant neoplasm of the cervix Family planning counseling Other general counseling and advice for contraceptive management Pelvic pain Family history of ovarian cancer Family history of malignant neoplasm of ovary documented in this encounter Additional Health Concerns Assessment Noted Time PHQ-9 Depression Total Score: 8 04/24/19 25 12:06 PM EDT documented as of this encounter Care Teams Assessment Manager Relationship Specialty Start Date End Date Ninoska Velez NP [address] [place] [address] PCP - General Family Medicine 11/11/22 documented as of this encounter
--- OUTSIDE RECORDS SUMMARY | 2024-05-23 18:23 | XMS_ITS | Clinical Summary ---
Author Organization [facility] Address [address] [place] [address] Phone Care Team Providers Care Information Officer Name Role Phone Physician, Pcp Unknown Primary Care Provider Bonnie vailable Allergies No known active allergies Medications predniSONE (DELTASONE) 10 mg tablet Take 5 tablets (50 mg total) by mouth 1 (one) time each day for 3 days, THEN 3 tablets (30 mg total) 1 (one) time each day for 2 days, THEN 1 tablet (10 mg total) 1 (one) time each day for 2 days. See instructions .. 23 each 05/21/2024 5 Active oxyCODONE (ROXICODONE) 5 mg immediate release tablet Take 1 tablet (5 mg total) by mouth 2 (two) times a day if needed for severe pain for up to 6 days. Max Daily Amount: 10 mg 6 tablet 05/21/2024 5 Active Encounters Date Type Department Care Team Description 05/21/2024 2:02 AM EDT - 05/21/2024 4:50 AM EDT Emergency [facility] Emergency [address] [place] [address] John Hicks MD Acute exacerbation of chronic low back pain (Primary Dx) Discharge Disposition: Home or Self Care from Last 3 Months Social History Tobacco Use Types Packs/Day Years Used Date Smoking Tobacco: Never Assessed Comments Unknown Sex and Gender Information Value Date Recorded Sex Assigned at Not on file Legal Sex Female 10:31 PM EDT Gender Identity Not on file Sexual Orientation Not on file Last Filed Vital Signs Vital Sign Reading Time Taken Comments Blood Pressure 121/72 05/21/2024 3:42 AM EDT Pulse 66 05/21/2024 3:42 AM EDT Temperature 36.7 ??C (98 ??F) 05/21/2024 3:42 AM EDT Respiratory Rate 18 05/21/2024 3:42 AM EDT Oxygen Saturation 96% 05/21/2024 3:42 AM EDT Inhaled Oxygen Concentration - - Weight 99.8 kg (220 lb) 05/20/2024 10:39 PM EDT Height 188 cm (6' 2 ) 05/20/2024 10:39 PM EDT Body Mass Index 28.25 05/20/2024 10:39 PM EDT Plan of Treatment Health Maintenance Due Date Last Done Comments Pneumococcal Vaccine: Pediatrics (0 to 5 Years) and At-Risk Patients (6 to 64 Years) (1 of 2 - PCV) 04/30/2010 Cervical Cancer Screening: P ap Smear 04/30/2012 COVID-19 Vaccine ( - 2023-2 5 season) 2023 Hepatitis C Screening 05/20/2024 Social Influencers of Health Screening 05/20/2024 Influenza Vaccine (Season Ended) 2024 12/07/2021, 11/29/2018 Depression Screening 04/23/2025 04/23/2024 DTaP,Tdap,and Td Vaccines (2 - Td or Tdap) 09/03/2031 09/02/2021 MMR Vaccines Aged Out 01/01/2019 No longer eligi ble based on patient's age to complete this topic HIV Screening Completed 09/01/2021 Hepatitis B Vaccines Completed 10/28/2022, 11/24/2021, 01/01/2019 HIB Vaccines Aged Out No longer eligi ble based on patient's age to complete this topic HPV Vaccines Aged Out No longer eligi ble based on patient's age to complete this topic Hepatitis A Vaccines Aged Out No long er eligible based on patient's age to complete this topic IPV Vaccines Aged Out No longer eligi ble based on patient's age to complete this topic Meningococcal ACWY Vaccine Aged Out N o longer eligible based on patient's age to complete this topic Meningococcal B Vaccine Aged Out No l onger eligible based on patient's age to complete this topic RSV Immunization Patients Under 20 months Aged Out No longer eligible b ased on patient's age to complete this topic Varicella Vaccines Aged Out No longer eligible based on patient's age to complete this topic Procedures Procedure Name Priority Date/Time Associated Diagnosis Comments XR CHEST 2 VIEWS STAT 05/21/2024 12:4 6 AM EDT POC , URINE DIAGNOSTIC STAT 05/20/2024 11:10 PM EDT RUIZ URINE CULTURE TUBE STAT 05/20/2024 11:05 PM EDT URINALYSIS WITH REFLEX MICROSCOPIC AND CULTURE STAT 05/20/2024 11:05 PM EDT URINALYSIS WITH REFLEX MICROSCOPIC AND CULTURE STAT 05/20/2024 11:05 PM EDT RESPIRATORY VIRUS PANEL MOLECULAR STUDY STAT 05/20/2024 11:05 PM EDT CBC WITH AUTO DIFFERENTIAL STAT 05/20/2024 11:00 PM EDT COMPREHENSIVE METABOLIC PANEL STAT 05/20/2024 11:00 PM EDT CBC AND DIFFERENTIAL STAT 05/20/2024 11:00 PM EDT from Last 3 Months Results * XR Chest 2 Views (05/21/2024 12:46 AM EDT) Anatomical Region Laterality Modality Body Radiographic Siena ging 05/21/2024 8:45 AM EDT Impressions 05/21/2024 8:45 AM EDT No acute findings. -------- FINAL REPORT -------- Dictated By: Neal Landry Dictated Date: 05/21/2024 08:45 ET Assigned Physician: Neal Landry Reviewed and Electronically Signed By: Neal Landry Signed Date: 05/21/2024 08:45 ET Workstation ID: [id number] Transcribed By: Self Edit Transcribed Date: 05/21/2024 08:45 ET Narrative 05/21/2024 8:45 AM EDT PROCEDURE: PA and lateral radiographs of the chest. HISTORY: Respiratory illness, no prior imaging cough congestion sob. COMPARISON: None. FINDINGS: Slightly elevated left hemidiaphragm. ??Lungs, pleural spaces, pulmonary vasculature, and cardiomediastinal contours are normal. Procedure Note Neal Landry MD - 05/21/2024 PROCEDURE: PA and lateral radiographs of the chest. HISTORY: Respiratory illness, no prior imaging cough congestion sob. COMPARISON: None. FINDINGS: Slightly elevated left hemidiaphragm. Lungs, pleural spaces, pulmonaryvasculature, and cardiomediastinal contours are normal. IMPRESSION: No acute findings. -------- FINAL REPORT -------- Dictated By: Neal Landry Dictated Date: 05/21/2024 08:45 ET Assigned Physician: Neal Landry Reviewed and Electronically Signed By: Neal Landry Signed Date: 05/21/2024 08:45 ET Workstation ID: [id number] Transcribed By: Self Edit Transcribed Date: 05/21/2024 08:45 ET John Hicks MD IMG XR PROCEDURES Final Result * POC , urine manually resulted (05/20/2024 11:10 PM EDT) Pathologist [facility] [place] HCG, Ur POC Negative Negative POC hCG Int QC Pass? Yes Yes EXPIRATION DATE POC [id number] LOT NUMBER POC [id number] Urine Urine specimen obtained by clean catch procedure / Unknown 05/20/2024 11:10 PM EDT us John Hicks MD POINT OF CARE TEST ENTER/EDIT ORDERABLES Final Result * (ABNORMAL) Urinalysis with reflex microscopic and culture (05/20/2024 11:05 PM EDT) Pathologist [facility] [place] Specific [place] Urine 1.029 1.003 - 1.030 LAB URINALYSIS - AUTOMATED METHOD 05/20/2024 11:29 PM EDT [facility] pH, Urine 8.0 5.0 - 8.0 pH LAB URINALYSIS - AUTOMATED METHOD 05/20/2024 11:29 PM [facility] Leukocytes, Urine Negative Negative LAB URINALYSIS - AUTOMATED METHOD 05/20/2024 11:29 PM [facility] Nitrite, Urine Negative Negative LAB URINALYSIS - AUTOMATED METHOD 05/20/2024 11:29 PM [facility] Protein, Urine 30(A) <=Trace mg/dL LAB URINALYSIS - AUTOMATED METHOD 05/20/2024 11:29 PM [facility] Glucose, Urine Negative Negative mg/dL LAB URINALYSIS - AUTOMATED METHOD 05/20/2024 11:29 PM [facility] Ketones, Urine Trace(A) Negative mg/dL LAB URINALYSIS - AUTOMATED METHOD 05/20/2024 11:29 PM [facility] Urobilinogen, Urine 1.0 0.2 - 1.0 mg/dL LAB URINALYSIS - AUTOMATED METHOD 05/20/2024 11:29 PM [facility] Bilirubin, Urine Negative Negative LAB URINALYSIS - AUTOMATED METHOD 05/20/2024 11:29 PM [facility] Blood, Urine Negative Negative LAB URINALYSIS - AUTOMATED METHOD 05/20/2024 11:29 PM [facility] RBC, Urine 3.1 0 - 4 /HPF LAB URINALYSIS - AUTOMATED METHOD 05/20/2024 11:29 PM [facility] WBC, Urine 3.0 0 - 4 /HPF LAB URINALYSIS - AUTOMATED METHOD 05/20/2024 11:29 PM [facility] Squamous Epithelial, Urine >100(H) 0 - 60 /LPF LAB URINALYSIS - AUTOMATED METHOD 05/20/2024 11:29 PM [facility] Bacteria, Urine Negative Negative /HPF LAB URINALYSIS - AUTOMATED METHOD 05/20/2024 11:29 PM EDT [facility] Hyaline Casts, Urine 0.8 0 - 3 /LPF LAB URINALYSIS - AUTOMATED METHOD 05/20/2024 11:29 PM EDT [facility] Urine Urine specimen obtained by clean catch procedure / Unknown Non-blood Collection / Unknown 05/20/2024 11:05 PM EDT 05/20/2024 11:21 PM EDT us John Hicks MD LAB URINE ORDERABLES Final Res ult [facility] [address] [place] [address], [place] [phone] * Respiratory virus panel molecular study (05/20/2024 11:05 PM EDT) Adenovirus Detection by PCR Not Detected Not Detected LAB MICROBIOLOGY METHOD 05/21/2024 12:16 AM EDT [facility] Influenza A PCR Not Detected Not Detected LAB MICROBIOLOGY METHOD 05/21/2024 12:16 AM EDT [facility] Influenza B PCR Not Detected Not Detected LAB MICROBIOLOGY METHOD 05/21/2024 12:16 AM EDT [facility] Coronavirus 229E Not Detected Not Detected LAB MICROBIOLOGY METHOD 05/21/2024 12:16 AM EDT [facility] Coronavirus HKU1 Not Detected Not Detected LAB MICROBIOLOGY METHOD 05/21/2024 12:16 AM EDT [facility] Coronavirus OC43 Not Detected Not Detected LAB MICROBIOLOGY METHOD 05/21/2024 12:16 AM EDT [facility] Coronavirus NL63 Not Detected Not Detected LAB MICROBIOLOGY METHOD 05/21/2024 12:16 AM EDT [facility] Parainfluenza Virus 1 Not Detected Not Detected LAB MICROBIOLOGY METHOD 05/21/2024 12:16 AM EDT [facility] Parainfluenza Virus 2 Not Detected Not Detected LAB MICROBIOLOGY METHOD 05/21/2024 12:16 AM EDT [facility] Parainfluenza Virus 3 Not Detected Not Detected LAB MICROBIOLOGY METHOD 05/21/2024 12:16 AM EDT [facility] Parainfluenza Virus 4 Not Detected Not Detected LAB MICROBIOLOGY METHOD 05/21/2024 12:16 AM EDT [facility] RSV PCR Not Detected Not Detected LAB MICROBIOLOGY METHOD 05/21/2024 12:16 AM EDT [facility] Human Metapneumovirus A and B Not Detected Not Detected LAB MICROBIOLOGY METHOD 05/21/2024 12:16 AM EDT [facility] Rhinovirus/Entero virus Not Detected Not Detected LAB MICROBIOLOGY METHOD [facility] Bordetella pertussis Not Detected Not Detected LAB MICROBIOLOGY METHOD 05/21/2024 12:16 AM EDT [facility] Bordetella parapertussis Not Detected Not Detected LAB MICROBIOLOGY METHOD 05/21[facility]2024 [facility] Mycoplasma pneumo by PCR Not Detected Not Detected LAB MICROBIOLOGY METHOD 05/21/2024 12:[facility] Chlamydia pneumoniae Not Detected Not Detected LAB MICROBIOLOGY METHOD 05/21/2024 12:16 AM [facility] SARS COV-2 Not Detected Not Detected LAB MICROBIOLOGY METHOD 05/21/2024 12:16 AM [facility] Swab Both anterior nares / Unknown Non-blood Collection / Unknown 05/20/2024 11:05 PM EDT 05/20/2024 11:21 PM EDT [facility] - 05/21/2024 12:16 AM EDT Testing was performed using the [employer] Respiratory Pathogen PCR Assay. All results must be correlated with the clinical findings. Results should not be used as the sole basis for diagnosis. False Negative results may occur from the presence of sequence variants in the region targeted by the assay or the presence of inhibitors. Results may be affected by concurrent antiviral/antimicrobial therapy or levels of organisms that are below the limit of detection. us John Hicks MD LAB MICROBIOLOGY - GENERAL ORD ERABLES Final Result Performing Organization Address [facility]/ZIP Co de Phone Number [facility] [address] [place] [address], [place] [phone] * Ruiz urine culture tube (05/20/2024 11:05 PM EDT) [facility] Extra Tube Hold for add-ons. 05/21/2024 1:05 AM EDT [facility] Comment:Auto resulted. Urine Urine specimen obtained by clean catch procedure / Unknown Non-blood Collection / Unknown 05/20/2024 11:05 PM EDT 05/20/2024 11:21 PM EDT us John Hicks MD LAB URINE ORDERABLES Final Res ult Performing Organization Address [facility]/ZIP Co de Phone Number [facility] [address] [place] [address], [place] [phone] * (ABNORMAL) CBC auto differential (05/20/2024 11:00 PM EDT) [facility] WBC 10.1 4.8 - 10.8 K/mcL LAB HEMETOLOGY METHOD 05/20/2024 11:26 PM EDT [facility] RBC 4.00 3.80 - 4.80 M/mcL LAB HEMETOLOGY METHOD 05/20/2024 11:26 PM EDT [facility] Hemoglobin 12.3 11.5 - 16.0 g/dL LAB HEMETOLOGY METHOD 05/20/2024 11:26 PM EDT [facility] Hematocrit 37.3 35.0 - 47.0 % LAB HEMETOLOGY METHOD 05/20/2024 11:26 PM EDT [facility] MCV 93.5 79.0 - 98.0 FL LAB HEMETOLOGY METHOD 05/20/2024 11:26 PM [facility] MCH 30.8 27.0 - 32.0 pcg LAB HEMETOLOGY METHOD 05/20/2024 11:26 PM [facility] MCHC 33.0 32.0 - 37.0 g/dL LAB HEMETOLOGY METHOD 05/20/2024 11:26 PM [facility] RDW 14.1 11.0 - 15.0 % LAB HEMETOLOGY METHOD 05/20/2024 11:26 PM [facility] Platelets 203 130 - 400 K/mcL LAB HEMETOLOGY METHOD 05/20/2024 11:26 PM [facility] MPV 12.9(H) 7.0 - 11.0 FL LAB HEMETOLOGY METHOD 05/20/2024 11:26 PM [facility] NRBC 0.0 <1.0 % LAB HEMETOLOGY METHOD 05/20/2024 11:26 PM [facility] NRBC Absolute 0.00 <0.10 K/mcL LAB HEMETOLOGY METHOD 05/20/2024 11:26 PM [facility] Neutrophils Relative 57.7 % LAB HEMETOLOGY METHOD 05/20/2024 11:26 PM [facility] Lymphocytes Relative 27.8 % LAB HEMETOLOGY METHOD 05/20/2024 11:26 PM [facility] Monocytes Relative 7.5 % LAB HEMETOLOGY METHOD 05/20/2024 11:26 PM [facility] Eosinophils Relative 6.1 % LAB HEMETOLOGY METHOD 05/20/2024 11:26 PM [facility] Basophils Relative 0.6 % LAB HEMETOLOGY METHOD 05/20/2024 11:26 PM EDT [facility] Immature Granulocytes Relative 0.3 % LAB HEMETOLOGY METHOD 05/20/2024 11:26 PM EDT [facility] Neutrophils Absolute 5.84 1.50 - 7.00 K/[facility] LAB HEMETOLOGY METHOD 05/20/2024 11:26 PM EDT [facility] Lymphocytes Absolute 2.82 1.00 - 5.00 K/[facility] LAB HEMETOLOGY METHOD 05/20/2024 11:26 PM EDT [facility] Monocytes Absolute 0.76 0.20 - 1.00 K/[facility] LAB HEMETOLOGY METHOD 05/20/2024 11:26 PM EDT [facility] Eosinophils Absolute 0.62(H) 0.00 - 0.50 K/[facility] LAB HEMETOLOGY METHOD 05/20/2024 11:26 PM EDT [facility] Basophils Absolute 0.06 0.00 - 0.20 K/[facility] LAB HEMETOLOGY METHOD 05/20/2024 11:26 PM EDT [facility] Immature Granulocytes Absolute 0.03 0.00 - 0.03 K/[facility] LAB HEMETOLOGY METHOD 05/20/2024 11:26 PM T [facility] Blood Venous blood specimen / Unknown Venipuncture / Unknown 05/20/2024 11:00 PM EDT 05/20/2024 11:21 PM EDT us John Hicks MD LAB BLOOD ORDERABLES Final Res ult [facility] [address] [place] [address], * (ABNORMAL) Comprehensive metabolic panel (05/20/2024 11:00 PM EDT) Sodium 141 133 - 145 mmol/L LAB CHEMISTRY METHOD 05/20/2024 11:43 PM EDT [facility] Potassium 4.1 3.5 - 5.5 mmol/L LAB CHEMISTRY METHOD 05/20/2024 11:43 PM [facility] Chloride 109 96 - 110 mmol/L LAB CHEMISTRY METHOD 05/20/2024 11:43 PM [facility] CO2 28 21 - 32 mmol/L LAB CHEMISTRY METHOD 05/20/2024 11:43 PM [facility] Anion Gap 4 3 - 11 LAB CHEMISTRY METHOD 05/20/2024 11:43 PM [facility] Glucose 97 70 - 100 mg/dL LAB CHEMISTRY METHOD 05/20/2024 11:43 PM [facility] BUN 10 5 - 25 mg/dL LAB CHEMISTRY METHOD 05/20/2024 11:43 PM [facility] Creatinine 0.74 0.50 - 1.10 mg/dL LAB CHEMISTRY METHOD 05/20/2024 11:43 PM [facility] eGFR 110 >=60 mL/min/1. 73m2 LAB CHEMISTRY METHOD 05/20/2024 11:43 PM [facility] Comment:Calculation based on the??Chronic Kidney Disease Epidemiology Collaboration (CKD-EPI) equation refit??without adjustment for race. BUN/Creatinine Ratio 13.5 LAB CHEMISTRY METHOD 05/20/2024 11:43 PM [facility] Calcium 9.9 8.5 - 10.5 mg/dL LAB CHEMISTRY METHOD 05/20/2024 11:43 PM [facility] AST (SGOT) 22 10 - 42 unit/L LAB CHEMISTRY METHOD 05/20/2024 11:43 PM [facility] ALT (SGPT) 28 10 - 60 unit/L LAB CHEMISTRY METHOD 05/20/2024 11:43 PM [facility] Alkaline Phosphatase 130(H) 42 - 121 unit/L LAB CHEMISTRY METHOD 05/20/2024 11:43 PM [facility] Total Protein 7.2 6.0 - 8.0 g/dL LAB CHEMISTRY METHOD 05/20/2024 11:43 PM EDT [facility] Albumin 3.7 3.2 - 5.0 g/dL LAB CHEMISTRY METHOD 05/20/2024 11:43 PM EDT [facility] Total Bilirubin 0.3 0.0 - 1.4 mg/dL LAB CHEMISTRY METHOD 05/20/2024 11:43 PM EDT [facility] Blood Venous blood specimen / Unknown Venipuncture / Unknown 05/20/2024 11:00 PM EDT 05/20/2024 11:21 PM EDT John Hicks MD LAB BLOOD ORDERABLES Final Res ult [facility] [address] [place] [address], from Last 3 Months Insurance MEDICAID - [place] Care Teams Information Officer Relationship Specialty Start Date End Date Physician, Pcp Unknown PCP - General 05/21/24
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
--- OUTSIDE RECORDS SUMMARY | 2024-05-23 18:23 | XMS_ITS | Encounter Summary ---
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 the??Chronic Kidney Disease Epidemiology Collaboration (CKD-EPI) equation refit??without adjustment for race. BUN/Creatinine Ratio 13.5 LAB CHEMISTRY METHOD 05/20/2024 11:43 PM [facility] Calcium 9.9 8.5 - 10.5 mg/dL LAB CHEMISTRY METHOD 05/20/2024 11:43 PM [facility] AST (SGOT) 22 10 - 42 unit/L LAB CHEMISTRY METHOD 05/20/2024 11:43 PM [facility] ALT (SGPT) 28 10 - 60 unit/L LAB CHEMISTRY METHOD 05/20/2024 11:43 PM [facility] Alkaline Phosphatase 130(H) 42 - 121 unit/L LAB CHEMISTRY METHOD 05/20/2024 11:43 PM [facility] Total Protein 7.2 6.0 - 8.0 g/dL LAB CHEMISTRY METHOD 05/20/2024 11:43 PM [facility] Albumin 3.7 3.2 - 5.0 g/dL LAB CHEMISTRY METHOD 05/20/2024 11:43 PM [facility] Total Bilirubin 0.3 0.0 - 1.4 mg/dL LAB CHEMISTRY METHOD 05/20/2024 11:43 PM [facility] Blood Venous blood specimen / Unknown Venipuncture / Unknown 05/20/2024 11:00 PM EDT 05/20/2024 11:21 PM EDT us John Hicks MD LAB BLOOD ORDERABLES Final Res ult [facility] [address] [place] [address], documented in this encounter Visit Diagnoses Diagnosis Acute exacerbation of chronic low back pain- Primary documented in this encounter Administered Medications Inactive Administered Medications - up to 3 most recent administrations Medication Order MAR Action Action Date Dose Rate Site oxyCODONE (ROXICODONE) immediate release tablet 5 mg 5 mg, oral, Once, On Tue05/21/24 at 0429, For 1 dose Given 05/21/2024 4:40 AM EDT 5 mg predniSONE (DELTASONE) tablet 60 mg 60 mg, oral, Once, On Tue05/21/24 at 0429, For 1 dose Given 05/21/2024 4:40 AM EDT 60 mg documented in this encounter Active and Recently Administered Medications Times are shown in EDT. Scheduled Medication Order 05/19/2024 05/20/2024 05/21/2024 oxyCODONE (ROXICODONE) immediate release tablet 5 mg (COMPLETED) 5 mg, oral, Once, On Tue05/21/24 at 0429, For 1 dose 0440 (Given - Provid er: Nuvia El RN) predniSONE (DELTASONE) tablet 60 mg (COMPLETED) 60 mg, oral, Once, On Tue05/21/24 at 0429, For 1 dose 0440 (Given - Provid er: Nuvia El RN) documented in this encounter Care Teams Bullet Swaging Machine Adjuster Relationship Specialty Start Date End Date Physician, Pcp Unknown PCP - General 05/21/24 documented as of this encounter
--- OUTSIDE RECORDS SUMMARY | 2024-05-23 18:23 | XMS_ITS | Encounter Summary ---
Author Organization [facility] Address [address] [place] [address] [address] [place] [address] Care Team Providers Care Regional Planner Name Role Phone Ninoska Velez NP Primary Care Provider [phone] Encounter Details Date Type Department Care Team (Late Contact Info) Description 02/17/2023 Abstract [facility] [address] [place] [address] Ninoska Velez NP [address] [place] [address] Social History Tobacco Use Types Packs/Day Years [...] Encounters Date Type Department Care Team (Late Contact Info) Description 06/04/2024 11:00 AM EDT Office Visit [facility] [address] [place] [address] Ninoska Velez NP [address] [place] [address] 06/25/2024 11:15 AM EDT Office Visit [facility] OPTOMETRY [address] [place] [address] Hannah Cohen, OD [address] [place] [address] 07/20/2024 11:45 AM EDT Office Visit [facility] [address] [place] [address] Mercedes Christianson MD [address] [place] [address] documented as of this encounter Visit Diagnoses Not on filedocumented in this encounter Additional Health Concerns Assessment Noted Time PHQ-9 Depression Total Score: 13 023 9:28 AM EDT documented as of this encounter Care Teams Regional Planner Relationship Specialty Start Date End Date Ninoska Velez NP [address] [place] [address] PCP - General Family Medicine 11/11/22 documented as of this encounter
--- OUTSIDE RECORDS SUMMARY | 2024-05-23 18:23 | XMS_ITS | Encounter Summary ---
Author Organization [employer] Address [address] [place] [address] [address] [place] [address] Care Team Providers Care Skin Carver Name Role Phone Ninoska Velez NP Primary Care Provider [phone] Reason for Visit * Reason Onset Date Comments Results 02/02/2023 Encounter Details Date Type Department Care Team ([facility] Contact Info) Description 02/02/2023 Telephone [facility] [address] [place] [address] Ninoska Velez NP [address] [place] [address] Results Social History Tobacco Use Types Packs/Day Years [...] encounter Miscellaneous Notes * Telephone Encounter - Dian Abhinav - 02/02/2023 11:48 AM EST Tc from pt requesting a call back in regards lab results from 01/14/2023 documented in this encounter Plan of Treatment Upcoming Encounters Date Type Department Care Team (Late st Contact Info) Description 06/04/2024 11:00 AM EDT Office Visit [facility] [address] [place] [address] Ninoska Velez NP [address] [place] [address] 06/25/2024 11:15 AM EDT Office Visit [facility] OPTOMETRY [address] [place] [address] Hannah Cohen, OD [address] [place] [address] 07/20/2024 11:45 AM EDT Office Visit [facility] [address] [place] [address] Mercedes Christianson MD [address] [place] [address] documented as of this encounter Visit Diagnoses Not on filedocumented in this encounter Additional Health Concerns Assessment Noted Time PHQ-9 Depression Total Score: 13 023 9:28 AM EDT documented as of this encounter Care Teams Skin Carver Relationship Specialty Start Date End Date Ninoska Velez NP [address] [place] [address] PCP - General Family Medicine 11/11/22 documented as of this encounter
--- OUTSIDE RECORDS SUMMARY | 2024-05-23 18:23 | XMS_ITS | Encounter Summary ---
Author Organization [employer] Address [address] [facility] [facility] [address] [place] [address] Care Team Providers Care Speech Correction Assistant Name Role Phone Ninoska Velez NP Primary Care Provider [phone] Encounter Details Date Type Department Care Team (Latest Contact Info) Description 05/23/2024 Travel Social History Tobacco Use Types Packs/Day Years [...] Description 06/04/2024 11:00 AM EDT Office Visit [facility] [address] [place] [address] Ninoska Velez NP [address] [place] [address] 06/25/2024 11:15 AM EDT Office Visit [facility] OPTOMETRY [address] [place] [address] TarHannah steve, OD [address] [place] [address] 07/20/2024 11:45 AM EDT Office Visit [facility] [address] [place] [address] Mercedes Christianson MD [address] [place] [address] documented as of this encounter Visit Diagnoses Not on filedocumented in this encounter Additional Health Concerns Assessment Noted Time PHQ-9 Depression Total Score: 8 04/24/19 25 12:06 PM EDT documented as of this encounter Care Teams Speech Correction Assistant Relationship Specialty Start Date End Date Ninoska Velez NP [address] [place] [address] PCP - General Family Medicine 11/11/22 documented as of this encounter
[2024-05-29 10:18] LABS: HPV Genotype 16 Negative (Negative); HPV Genotype 18 Negative (Negative); HPV High Risk Negative (Negative)
== END 2024-05-23 16:51 | disposition home or self-care (01) ==
LOC: HO.HHCLNP 16:50
PROVIDERS: Visit Provider Advanced Practice Midwife
DX: Z12.4 Encounter for screening for malignant neoplasm of cervix (principal); R10.2 Pelvic and perineal pain
CPT/HCPCS: 87626; 88175

== ENCOUNTER 2024-06-20 13:21 | Outpatient (REF) | payer MEDICAID, SELFPAY ==
--- NOTE | ~2024-06-20 | US_ITS ---
EXAMINATION: US PELVIS TRANSABDOMINAL AND TRANSVAGINAL HISTORY: pelvic pain COMPARISON: There are no prior studies for comparison. TECHNIQUE: Transabdominal and endovaginal real-time 2D duvall-scale ultrasound was performed. FINDINGS: Uterus: The uterus is normal in size, retroverted and retroflexed, measuring 0.9 x 4.8 x 7.8 cm. Myometrium has a normal echotexture. No fibroids are identified. Endometrium: The endometrial stripe measures 8 mm in thickness. Right ovary: The right ovary measures 3.3 x 1.6 x 2.2 cm. The right ovary is normal in size and echotexture. Left ovary: The left ovary measures 3.5 x 1.7 x 2.7 cm. The left ovary is normal in size and echotexture. Pelvic fluid: none. US/US pelvic and transvaginal IMPRESSION: Unremarkable pelvic ultrasound. Electronically signed by: Den Fuller MD 06/20/2024 01:59 PM EDT
--- OUTSIDE RECORDS SUMMARY | 2024-06-20 13:33 | XMS_ITS | Encounter Summary ---
Author Organization [employer] Address [address] [place] [address] Care Team Providers Care Air Conditioning Unit Tester Name Role Phone Ninoska Velez NP Primary Care Provider [phone] Encounter Details Date Type Department Care Team ([facility] st Contact Info) Description 03/02/2024 Orders Only [facility] [address] [place] [address] Provider, MD Jose Luis Social History Tobacco Use Types Packs/Day Years [...] Care Team (Late st Contact Info) Description 06/25/2024 11:15 AM EDT Office Visit [facility] OPTOMETRY [address] [place] [address] Hannah Cohen, OD [address] [place] [address] 07/20/2024 11:45 AM EDT Office Visit [facility] [address] [place] [address] Mercedes Christianson MD [address] [place] [address] documented as of this encounter Procedures Procedure Name Priority Date/Time Associated Diagnosis Comments HM PAP/HPV Routine 05/08/2021 3:23 PM EDT documented in this encounter Results * HM PAP/HPV (05/08/2021 3:23 PM EDT) us Historical Provider HEALTH MAINTENANCE Final Result [facility] [address] [place] [address] documented in this encounter Visit Diagnoses Not on filedocumented in this encounter Additional Health Concerns Assessment Noted Time PHQ-9 Depression Total Score: 10 024 2:44 PM EDT documented as of this encounter Care Teams Air Conditioning Unit Tester Relationship Specialty Start Date End Date Ninoska Velez NP [address] [place] [address] PCP - General Family Medicine 11/11/22 documented as of this encounter
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
--- OUTSIDE RECORDS SUMMARY | 2024-06-20 13:33 | XMS_ITS | Encounter Summary ---
Author Organization [employer] Address [address] [place] [address] 7t [place] [address] Care Team Providers Care Ux Interaction Designer Name Role Phone Ninoska Velez NP Primary Care Provider [phone] Reason for Visit * Reason Onset Date Comments Results 02/02/2023 Encounter Details Date Type Department Care Team ([facility] Contact Info) Description 02/02/2023 Telephone [facility] MEDICINE [address] [place] [address] Ninoska Velez NP [address] [place] [address] Results Social History Tobacco Use Types Packs/Day [...] Description 06/25/2024 11:15 AM EDT Office Visit [facility] OPTOMETRY [address] [place] [address] Hannah Cohen, OD [address] [place] [address] 07/20/2024 11:45 AM EDT Office Visit [facility] MEDICINE [address] [place] [address] Mercedes Christianson MD [address] [place] [address] documented as of this encounter Visit Diagnoses Not on filedocumented in this encounter Additional Health Concerns Assessment Noted Time PHQ-9 Depression Total Score: 13 023 9:28 AM EDT documented as of this encounter Care Teams Ux Interaction Designer Relationship Specialty Start Date End Date Ninoska Velez NP [address] [place], [place] [phone] PCP - General Family Medicine 11/11/22 documented as of this encounter
--- OUTSIDE RECORDS SUMMARY | 2024-06-20 13:33 | XMS_ITS | Encounter Summary ---
Author Organization [employer] Address [address] [place] [address] [address] [place] [address] Care Team Providers Care Door Hanger Name Role Phone Ninoska Velez NP Primary Care Provider [phone] Encounter Details Date Type Department Care Team (Late Contact Info) Description 02/17/2023 Abstract [facility] MEDICINE [address] [place] [address] Ninoska Velez NP [address] [place] [address] Social History Tobacco Use Types Packs/Day Years [...] Department Care Team (Late Contact Info) Description 06/25/2024 11:15 AM EDT Office Visit [facility] OPTOMETRY [address] [place] [address] Hannah Cohen, OD [address] [place] [address] 07/20/2024 11:45 AM EDT Office Visit [facility] MEDICINE [address] [place], [place] [phone] Mercedes Christianson MD [address] [place], [place] [phone] documented as of this encounter Visit Diagnoses Not on filedocumented in this encounter Additional Health Concerns Assessment Noted Time PHQ-9 Depression Total Score: 13 023 9:28 AM EDT documented as of this encounter Care Teams Door Hanger Relationship Specialty Start Date End Date Ninoska Velez NP [address] [place], [place] [phone] PCP - General Family Medicine 11/11/22 documented as of this encounter
--- OUTSIDE RECORDS SUMMARY | 2024-06-20 13:33 | XMS_ITS | Clinical Summary ---
Author Organization [facility] Address [address] [place] [address] Phone Care Team Providers Care Cable Ferry Operator Name Role Phone Physician, Pcp Unknown Primary [...] days. See instructions .. 23 each 05/21/2024 05/29/19 25 oxyCODONE (ROXICODONE) 5 mg immediate release tablet Take 1 tablet (5 mg total) by mouth 2 (two) times a day if needed for severe pain for up to 6 days. Max Daily Amount: 10 mg 6 tablet 05/21/2024 05/28/19 25 Encounters Date Type Department Care Team Description 05/21/2024 2:02 AM EDT - 05/21/2024 4:50 AM EDT Emergency [facility] Emergency [address] [place] [address] John Hicks MD Acute exacerbation [...] Signed Date: 05/21/2024 08:45 ET Workstation ID: [id number] Transcribed By: Self Edit Transcribed Date: 05/21/2024 [...] Signed Date: 05/21/2024 08:45 ET Workstation ID: [id number] Transcribed By: Self Edit Transcribed Date: 05/21/2024 08:45 ET John Hicks MD IMG XR PROCEDURES Final Result * POC , urine manually resulted (05/20/2024 11:10 PM EDT) Pathologist [facility] HCG, Ur POC Negative Negative POC hCG Int QC Pass? Yes Yes EXPIRATION DATE POC [id number] LOT NUMBER POC [id number] Urine Urine specimen obtained by clean catch procedure / Unknown 05/20/2024 11:10 PM EDT us John Hicks MD POINT OF CARE TEST ENTER/EDIT ORDERABLES Final Result * (ABNORMAL) Urinalysis with reflex microscopic and culture (05/20/2024 11:05 PM EDT) Pathologist [facility] Specific [place] Urine 1.029 1.003 - 1.030 LAB URINALYSIS - AUTOMATED METHOD 05/20/2024 11:29 PM EDT [facility] pH, Urine 8.0 5.0 - 8.0 pH LAB URINALYSIS - AUTOMATED METHOD 05/20/2024 11:29 PM [facility] Leukocytes, Urine Negative Negative LAB URINALYSIS - AUTOMATED METHOD 05/20/2024 11:29 PM [facility] Nitrite, Urine Negative Negative LAB URINALYSIS - AUTOMATED METHOD 05/20/2024 11:29 PM [facility] Protein, Urine 30(A) <=Trace mg/dL LAB URINALYSIS - AUTOMATED METHOD 05/20/2024 11:29 PM [facility] Glucose, Urine Negative Negative mg/dL LAB URINALYSIS - AUTOMATED METHOD 05/20/2024 11:29 PM [facility] Ketones, Urine Trace(A) Negative mg/dL LAB URINALYSIS - AUTOMATED METHOD 05/20/2024 11:29 PM [facility] Urobilinogen, Urine 1.0 0.2 - 1.0 mg/dL LAB URINALYSIS - AUTOMATED METHOD 05/20/2024 11:29 PM [facility] Bilirubin, Urine Negative Negative LAB URINALYSIS - AUTOMATED METHOD 05/20/2024 11:29 PM [facility] Blood, Urine Negative Negative LAB URINALYSIS - AUTOMATED METHOD 05/20/2024 11:29 PM [facility] RBC, Urine 3.1 0 - 4 /HPF LAB URINALYSIS - AUTOMATED METHOD 05/20/2024 11:29 PM [facility] WBC, Urine 3.0 0 - 4 /HPF LAB URINALYSIS - AUTOMATED METHOD 05/20/2024 11:29 PM [facility] Squamous Epithelial, Urine >100(H) 0 - 60 /LPF LAB URINALYSIS - AUTOMATED METHOD 05/20/2024 11:29 PM [facility] Bacteria, Urine Negative Negative /HPF LAB URINALYSIS - AUTOMATED METHOD 05/20/2024 11:29 PM EDT [facility] Hyaline Casts, Urine 0.8 0 - 3 /LPF LAB URINALYSIS - AUTOMATED METHOD 05/20/2024 11:29 PM EDT [facility] Urine Urine specimen obtained by clean catch procedure / Unknown Non-blood Collection / Unknown 05/20/2024 11:05 PM EDT 05/20/2024 11:21 PM EDT us John Hicks MD LAB URINE ORDERABLES Final Res ult [facility] [address] [place] [address], [place] [phone] * Respiratory virus panel molecular study (05/20/2024 11:05 PM EDT) Adenovirus Detection by PCR Not Detected Not Detected LAB MICROBIOLOGY METHOD 05/21/2024 12:16 AM EDT [facility] Influenza A PCR Not Detected Not Detected LAB MICROBIOLOGY METHOD 05/21/2024 12:16 AM EDT [facility] Influenza B PCR Not Detected Not Detected LAB MICROBIOLOGY METHOD 05/21/2024 12:16 AM EDT [facility] Coronavirus 229E Not Detected Not Detected LAB MICROBIOLOGY METHOD 05/21/2024 12:16 AM EDT [facility] Coronavirus HKU1 Not Detected Not Detected LAB MICROBIOLOGY METHOD 05/21/2024 12:16 AM EDT [facility] Coronavirus OC43 Not Detected Not Detected LAB MICROBIOLOGY METHOD 05/21/2024 12:16 AM EDT [facility] Coronavirus NL63 Not Detected Not Detected LAB MICROBIOLOGY METHOD 05/21/2024 12:16 AM EDT [facility] Parainfluenza Virus 1 Not Detected Not Detected LAB MICROBIOLOGY METHOD 05/21/2024 12:16 AM EDT [facility] Parainfluenza Virus 2 Not Detected Not Detected LAB MICROBIOLOGY METHOD 05/21/2024 12:16 AM EDT [facility] Parainfluenza Virus 3 Not Detected Not Detected LAB MICROBIOLOGY METHOD 05/21/2024 12:16 AM EDT [facility] Parainfluenza Virus 4 Not Detected Not Detected LAB MICROBIOLOGY METHOD 05/21/2024 12:16 AM EDT [facility] RSV PCR Not Detected Not Detected LAB MICROBIOLOGY METHOD 05/21/2024 12:16 AM EDT [facility] Human Metapneumovirus A and B Not Detected Not Detected LAB MICROBIOLOGY METHOD 05/21/2024 12:16 AM EDT [facility] Rhinovirus/Entero virus Not Detected Not Detected LAB MICROBIOLOGY METHOD 05/21[facility]2024 12:[facility] Bordetella pertussis Not Detected Not Detected LAB MICROBIOLOGY METHOD 05/21/2024 12:[facility] Bordetella parapertussis Not Detected Not Detected LAB MICROBIOLOGY METHOD 05/21/2024 12:16 AM [facility] Mycoplasma pneumo by PCR Not Detected Not Detected LAB MICROBIOLOGY METHOD 05/21/2024 12:16 AM [facility] Chlamydia pneumoniae Not Detected Not Detected LAB MICROBIOLOGY METHOD 05/21/2024 12:16 AM [facility] SARS COV-2 Not Detected Not Detected LAB MICROBIOLOGY METHOD 05/21/2024 12:16 AM [facility] Swab Both anterior nares / Unknown Non-blood Collection / Unknown 05/20/2024 11:05 PM EDT 05/20/2024 11:21 PM EDT [facility] - 05/21/2024 12:16 AM EDT Testing was performed using the Tourlandish Respiratory Pathogen PCR Assay. All results must [...] ORD ERABLES Final Result Performing Organization Address [facility]/ZIP Co de Phone Number [facility] [address] [place] [address], [place] [phone] * Ruiz urine culture tube (05/20/2024 11:05 PM EDT) [facility] Extra Tube Hold for add-ons. 05/21/2024 1:05 AM EDT [facility] Comment:Auto resulted. Urine Urine specimen obtained by clean catch procedure / Unknown Non-blood Collection / Unknown 05/20/2024 11:05 PM EDT 05/20/2024 11:21 PM EDT John Hicks MD LAB URINE ORDERABLES Final Res ult Performing Organization Address [facility]/ZIP Co de Phone Number [facility] [address] [place] [address], [place] [phone] * (ABNORMAL) CBC auto differential (05/20/2024 11:00 PM EDT) [facility] WBC 10.1 4.8 - 10.8 K/mcL LAB HEMETOLOGY METHOD 05/20/2024 11:26 PM EDT [facility] RBC 4.00 3.80 - 4.80 M/mcL LAB HEMETOLOGY METHOD 05/20/2024 11:26 PM EDT [facility] Hemoglobin 12.3 11.5 - 16.0 g/dL LAB HEMETOLOGY METHOD 05/20/2024 11:26 PM EDT [facility] Hematocrit 37.3 35.0 - 47.0 % LAB HEMETOLOGY METHOD 05/20/2024 11:26 PM EDT [facility] MCV 93.5 79.0 - 98.0 FL LAB HEMETOLOGY METHOD 05/20/2024 11:26 PM [facility] MCH 30.8 27.0 - 32.0 pcg LAB HEMETOLOGY METHOD 05/20/2024 11:26 PM [facility] MCHC 33.0 32.0 - 37.0 g/dL LAB HEMETOLOGY METHOD 05/20/2024 11:26 PM [facility] RDW 14.1 11.0 - 15.0 % LAB HEMETOLOGY METHOD 05/20/2024 11:26 PM [facility] Platelets 203 130 - 400 K/mcL LAB HEMETOLOGY METHOD 05/20/2024 11:26 PM [facility] MPV 12.9(H) 7.0 - 11.0 FL LAB HEMETOLOGY METHOD 05/20/2024 11:26 PM [facility] NRBC 0.0 <1.0 % LAB HEMETOLOGY METHOD 05/20/2024 11:26 PM [facility] NRBC Absolute 0.00 <0.10 K/mcL LAB HEMETOLOGY METHOD 05/20/2024 11:26 PM [facility] Neutrophils Relative 57.7 % LAB HEMETOLOGY METHOD 05/20/2024 11:26 PM [facility] Lymphocytes Relative 27.8 % LAB HEMETOLOGY METHOD 05/20/2024 11:26 PM [facility] Monocytes Relative 7.5 % LAB HEMETOLOGY METHOD 05/20/2024 11:26 PM [facility] Eosinophils Relative 6.1 % LAB HEMETOLOGY METHOD 05/20/2024 11:26 PM [facility] Basophils Relative 0.6 % LAB HEMETOLOGY METHOD 05/20/2024 11:26 PM EDT [facility] Immature Granulocytes Relative 0.3 % LAB HEMETOLOGY METHOD 05/20/2024 11:26 PM EDT [facility] Neutrophils Absolute 5.84 1.50 - 7.00 K/[facility] LAB HEMETOLOGY METHOD 05/20/2024 11:26 PM EDT [facility] Lymphocytes Absolute 2.82 1.00 - 5.00 K/[facility] LAB HEMETOLOGY METHOD 05/20/2024 11:26 PM EDT [facility] Monocytes Absolute 0.76 0.20 - 1.00 K/[facility] LAB HEMETOLOGY METHOD 05/20/2024 11:26 PM EDT [facility] Eosinophils Absolute 0.62(H) 0.00 - 0.50 K/[facility] LAB HEMETOLOGY METHOD 05/20/2024 11:26 PM EDT [facility] Basophils Absolute 0.06 0.00 - 0.20 K/[facility] LAB HEMETOLOGY METHOD 05/20/2024 11:26 PM EDT [facility] Immature Granulocytes Absolute 0.03 0.00 - 0.03 K/mcL LAB HEMETOLOGY METHOD 05/20/2024 11:26 PM T [facility] Blood Venous blood specimen / Unknown Venipuncture / Unknown 05/20/2024 11:00 PM EDT 05/20/2024 11:21 PM EDT us John Hicks MD LAB BLOOD ORDERABLES Final Res ult [facility] [address] [place] [address], * (ABNORMAL) Comprehensive metabolic panel (05/20/2024 11:00 PM EDT) Sodium 141 133 - 145 mmol/L LAB CHEMISTRY METHOD 05/20/2024 11:43 PM EDT [facility] Potassium 4.1 3.5 - 5.5 mmol/L LAB CHEMISTRY METHOD 05/20/2024 11:43 PM [facility] Chloride 109 96 - 110 mmol/L LAB CHEMISTRY METHOD 05/20/2024 11:43 PM [facility] CO2 28 21 - 32 mmol/L LAB CHEMISTRY METHOD 05/20/2024 11:43 PM [facility] Anion Gap 4 3 - 11 LAB CHEMISTRY METHOD 05/20/2024 11:43 PM [facility] Glucose 97 70 - 100 mg/dL LAB CHEMISTRY METHOD 05/20/2024 11:43 PM [facility] BUN 10 5 - 25 mg/dL LAB CHEMISTRY METHOD 05/20/2024 11:43 PM [facility] Creatinine 0.74 0.50 - 1.10 mg/dL LAB CHEMISTRY METHOD 05/20/2024 11:43 PM [facility] eGFR 110 >=60 mL/min/1. 73m2 LAB CHEMISTRY METHOD 05/20/2024 11:43 PM [facility] Comment:Calculation based on the??Chronic Kidney Disease Epidemiology Collaboration (CKD-EPI) equation refit??without adjustment for race. BUN/Creatinine Ratio 13.5 LAB CHEMISTRY METHOD 05/20/2024 11:43 PM [facility] Calcium 9.9 8.5 - 10.5 mg/dL LAB CHEMISTRY METHOD 05/20/2024 11:43 PM [facility] AST (SGOT) 22 10 - 42 unit/L LAB CHEMISTRY METHOD 05/20/2024 11:43 PM [facility] ALT (SGPT) 28 10 - 60 unit/L LAB CHEMISTRY METHOD 05/20/2024 11:43 PM [facility] Alkaline Phosphatase 130(H) 42 - 121 unit/L LAB CHEMISTRY METHOD 05/20/2024 11:43 PM [facility] Total Protein 7.2 6.0 - 8.0 g/dL LAB CHEMISTRY METHOD 05/20/2024 11:43 PM EDT [facility] Albumin 3.7 3.2 - 5.0 g/dL LAB CHEMISTRY METHOD 05/20/2024 11:43 PM EDT [facility] Total Bilirubin 0.3 0.0 - 1.4 mg/dL LAB CHEMISTRY METHOD 05/20/2024 11:43 PM EDT [facility] Blood Venous blood specimen / Unknown Venipuncture / Unknown 05/20/2024 11:00 PM EDT 05/20/2024 11:21 PM EDT us John Hicks MD LAB BLOOD ORDERABLES Final Res ult [facility] [address] [place] [address], [place] [phone] from Last 3 Months Insurance MEDICAID - [place] Care Teams Cable Ferry Operator Relationship Specialty Start Date End Date Physician, Pcp Unknown PCP - General 05/21/24
--- OUTSIDE RECORDS SUMMARY | 2024-06-20 13:33 | XMS_ITS | Encounter Summary ---
Author Organization [employer] Address [address] [place] [address] [address] [place] [address] Care Team Providers Care User Experience Manager Name Role Phone Ninoska Velez NP Primary Care Provider [phone] Reason for Visit * Reason Onset Date Comments Appointment Request 04/05/2023 Encounter Details Date Type Department Care Team ([facility] Contact Info) Description 04/05/2023 Telephone [facility] MEDICINE [address] [place] [address] Ninoska Velez NP [address] [place] [address] Appointment Request Social History Tobacco Use Types [...] to cancel and 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 documented in this encounter Plan of Treatment Upcoming Encounters Date Type Department Care Team (Late st Contact Info) Description 06/25/2024 11:15 AM EDT Office Visit [facility] OPTOMETRY [address] [place] [address] TarHannah steve, OD [address] [place] [address] 07/20/2024 11:45 AM EDT Office Visit [facility] MEDICINE [address] [place] [address] Mercedes Christianson MD [address] [place] [address] documented as of this encounter Visit Diagnoses Not on filedocumented in this encounter Additional Health Concerns Assessment Noted Time PHQ-9 Depression Total Score: 13 023 9:28 AM EDT documented as of this encounter Care Teams User Experience Manager Relationship Specialty Start Date End Date Ninoska Velez NP [address] [place] [address] PCP - General Family Medicine 11/11/22 documented as of this encounter
--- OUTSIDE RECORDS SUMMARY | 2024-06-20 13:33 | XMS_ITS | Encounter Summary ---
Author Organization [employer] Address [address] [facility] 7[address] [place] [address] Care Team Providers Care Associate Embalmer/Funeral Director Name Role Phone Ninoska Velez NP Primary Care Provider [phone] Reason for Visit * Reason Onset Date Comments Reschedule 07/29/2023 Encounter Details Date Type Department Care Team ([facility] Contact Info) Description 07/29/2023 Telephone [facility] MEDICINE [address] [place] [address] Ninoska Velez NP [address] [place] [address] Reschedule Social History Tobacco Use Types Packs/Day [...] 07/28 Derm appointment. Please contact pt at [phone] documented in this encounter Plan of Treatment Upcoming Encounters Date Type Department Care Team (Late st Contact Info) Description 06/25/2024 11:15 AM EDT Office Visit [facility] OPTOMETRY [address] [place] [address] TarpowerHannah, OD [address] [place] [address] 07/20/2024 11:45 AM EDT Office Visit [facility] MEDICINE [address] [place] [address] Mercedes Christianson MD [address] [place] [address] documented as of this encounter Visit Diagnoses Not on filedocumented in this encounter Additional Health Concerns Assessment Noted Time PHQ-9 Depression Total Score: 10 024 2:44 PM EDT documented as of this encounter Care Teams Associate Embalmer/Funeral Director Relationship Specialty Start Date End Date Ninoska Velez NP [address] [place] [address] PCP - General Family Medicine 11/11/22 documented as of this encounter
--- OUTSIDE RECORDS SUMMARY | 2024-06-20 13:33 | XMS_ITS | Encounter Summary ---
Author Organization [employer] Address [address] [place] [address] [address] [place] [address] Care Team Providers Care Patent Law Specialist Name Role Phone Ninoska Velez NP Primary Care Provider [phone] Reason for Visit * Reason Onset Date Comments Medication Question 04/28/2023 Encounter Details Date Type Department Care Team ([facility] Contact Info) Description 04/28/2023 Telephone [facility] MEDICINE [address] [place] [address] Ninoska Velez NP [address] [place] [address] Medication Question Social History Tobacco Use Types [...] last office visit appt for pain however movie writer does not see anything on patientschart documented in this encounter Plan of Treatment Upcoming Encounters Date Type Department Care Team (Late st Contact Info) Description 06/25/2024 11:15 AM EDT Office Visit [facility] OPTOMETRY [address] [place] [address] Hannah Cohen, OD [address] [place] [address] 07/20/2024 11:45 AM EDT Office Visit [facility] MEDICINE [address] [place] [address] Mercedes Christianson MD [address] [place] [address] documented as of this encounter Visit Diagnoses Not on filedocumented in this encounter Additional Health Concerns Assessment Noted Time PHQ-9 Depression Total Score: 13 023 9:28 AM EDT documented as of this encounter Care Teams Patent Law Specialist Relationship Specialty Start Date End Date Ninoska Velez NP [address] [place] [address] PCP - General Family Medicine 11/11/22 documented as of this encounter
== END 2024-06-20 13:22 | disposition home or self-care (01) ==
LOC: HO.HMGCX 13:21
PROVIDERS: Visit Provider Advanced Practice Midwife
DX: R10.2 Pelvic and perineal pain (principal)
CPT/HCPCS: 76830; 76856

== ENCOUNTER → 2024-06-20 13:23 | Outpatient (BNV) | payer MEDICAID, SELFPAY | PROVIDERS: Visit Provider Radiology Diagnostic Radiology | DX: R10.2 Pelvic and perineal pain (principal) | CPT/HCPCS: 76830; 76856 ==

== ENCOUNTER 2024-12-06 11:29 | Outpatient (REF) | payer MEDICAID, SELFPAY ==
--- OUTSIDE RECORDS SUMMARY | 2024-12-06 10:00 | XMS_ITS | Encounter Summary ---
Author Organization [employer] Address [address] [place] [address] [address] [place] [address] Care Team Providers Care Drupal Architect Name Role Phone Ninoska Velez NP Primary Care Provider Reason for Visit * Reason Comments Follow-up Encounter Details Date Type Department Care Team ([facility] Contact Info) Description 12/06/2024 10:00 AM EDT Office Visit [facility] MEDICINE [address] [place] [address] Ninoska Velez NP [address] [place] [address] Chronic bilateral low back pain without sciatica (Primary Dx); Weakness; Vaginal discharge; Routine screening for STI (sexually transmitted infection); Neck pain; Lumbar radiculopathy; Nasal congestion; Palmoplantar pustulosis Social History Tobacco Use Types Packs/Day Years Used Date Smoking Tobacco: Never Smokeless Tobacco: Never Alcohol Use Standard Drinks/Week Comments Not Currently 1 (1 standard drink = 0.6 oz pur e alcohol) once a month Depression Answer Date Recorded Patient Health Questionnaire-9 Score 7 12/06/2024 Patient Health Questionnaire-9 Score 7 12/06/2024 Last PHQ-9: Questionnaire Data Not on file 1 Housing Stability Answer Date Recorded What is [...] Date Recorded Patient Health Questionnaire-2 Score 2 12/06/2024 Internet Access Answer Date Recorded Internet Access [...] Sign Reading Time Taken Comments Blood Pressure 100/80 12/06/2024 10:36 AM EDT Pulse 69 12/06/2024 10:36 AM EDT Temperature 36.6 C (97.8 F) 12/06/2024 10:36 AM EDT Respiratory Rate 17 12/06/2024 10:36 AM EDT Oxygen Saturation 98% 12/06/2024 10:36 AM EDT Inhaled Oxygen Concentration - - Weight 106 kg (234 lb 3.2 oz) 12/06/2024 10:36 A M EDT Height 188 cm (6' 2 ) 12/06/2024 10:36 AM EDT Body Mass Index 30.07 12/06/2024 10:36 AM EDT documented in this encounter Functional Status * Over the past 2 weeks, how often have you been bothered by any of the following problems? Question Answer Date of Assessment Author Patient Health Questionnaire -2 Score 2 12/06/2024 10:39 AM EDT Hugo Chaney MA * Little interest or pleasure in doing things Answer Date of Assessment Author Several days 12/06/2024 10:39 AM EDT Hugo Chaney MA * Feeling down, depressed, or hopeless Answer Date of Assessment Author Several days 12/06/2024 10:39 AM LAURIT Hugo Chaney MA * Trouble falling or staying asleep, or sleeping too much Answer Date of Assessment Author More than half the days 12/06/2024 10:39 AM Hugo Call MA * Feeling tired or having little energy Answer Date of Assessment Author More than half the days 12/06/2024 10:39 AM EDT Hugo Chaney MA * Poor appetite or overeating Answer Date of Assessment Author Several days 12/06/2024 10:39 AM LAURIT Hugo Chaney MA * Feeling bad about yourself - or that you are a failure or have let yourself or your family down Answer Date of Assessment Author Not at all 12/06/2024 10:39 AM Hugo Call MA * Trouble concentrating on things, such as reading the newspaper or watching television Answer Date of Assessment Author Not at all 12/06/2024 10:39 AM Hugo Call MA * Moving or speaking so slowly that other people could have noticed? Or the opposite - being so fidgety or restless that you have been moving around a lot more than usual. Answer Date of Assessment Author Not at all 12/06/2024 10:39 AM Hugo Call MA * Thoughts that you would be better off or hurting yourself in some way Answer Date of Assessment Author Not at all 12/06/2024 10:39 AM Hugo Call MA * Patient Health Questionnaire-9 Score Answer Date of Assessment Author 7 12/06/2024 10:39 AM Hugo Call MA * How difficult have these problems made it for you to do your work, take care of things at home, or get along with other people? Answer Date of Assessment Author Not difficult at all 12/06/2024 10:39 AM Hugo Rogel MA * Over the last 2 weeks, how often have you been bothered by any of the following problems? Question Answer Date of Assessment Author Feeling nervous, anxious, or on edge 1 12/06/2024 10:39 AM EDT Hugo Chaney MA Not being able to stop or co ntrol worrying 1 12/06/2024 10:39 AM EDT Hugo Chaney MA Worrying too much about diff erent things 3 12/06/2024 10:39 AM EDT Hugo Chaney MA Trouble relaxing 3 12/06/2024 10:39 AM EDT Hugo Chaney MA Being so restless that it is hard to sit still 1 12/06/2024 10:39 AM EDT Hugo Chaney MA Becoming easily annoyed or irritable 1 12/06/2024 10:39 AM EDT Hugo Chaney MA Feeling afraid as if somethi ng awful might happen 1 12/06/2024 10:39 AM EDT Hugo Chaney MA PAYTON-7 Total Score 11 12/06/2024 10:39 AM EDT Hugo Chaney MA documented as of this encounter Miscellaneous Notes * Assessment & Plan Note - Ninoska Velez NP - 12/06/2024 10:00 AM EDTAssociated Problem(s): Chronic back pain Orders: cyclobenzaprine (Flexeril) 10 MG tablet; Take 1 tablet (10 mg) by mouth every 8 (eight) hours if needed for muscle spasms for up to 10 days. Lidoderm 5 % patch; Apply 1 patch topically Once per day. Remove & discard patch within 12 hours or as directed by MD. ibuprofen 600 MG tablet; TAKE 1 TABLET BY MOUTH EVERY 6 HOURS NEEDED FOR MILD PAIN FOR UP TO 14 DAYS Diclofenac Sodium 1 % gel; Apply 2 g topically if needed in the morning and at bedtime (Back pain). * Assessment & Plan Note - Ninoska Velez NP - 12/06/2024 10:00 AM EDTAssociated Problem(s): Neck pain Orders: cyclobenzaprine (Flexeril) 10 MG tablet; Take 1 tablet (10 mg) by mouth every 8 (eight) hours if needed for muscle spasms for up to 10 days. * Assessment & Plan Note - Ninoska Velez NP - 12/06/2024 10:00 AM EDTAssociated Problem(s): Lumbar radiculopathy * Assessment & Plan Note - Ninoska Velez NP - 12/06/2024 10:00 AM EDTAssociated Problem(s): Nasal congestion Orders: fluticasone (Flonase) 50 MCG/ACT nasal spray; SPRAY 1 SPRAY INTO EACH NOSTRIL TWICE A DAY. SHAKE GENTLY. BEFORE FIRST USE, PRIME PUMP. AFTER USE, CLEAN TIP AND REPLACE CAP. * Assessment & Plan Note - Ninoska Velez NP - 12/06/2024 10:00 AM EDTAssociated Problem(s): Palmoplantar pustulosis Orders: calcipotriene (Dovonex) 0.005 % ointment; APPLY TOPICALLY TWICE A DAY halobetasol (UltraVATE) 0.05 % ointment; APPLY TOPICALLY TWICE A DAY documented in this encounter Plan of Treatment Upcoming Encounters Date Type Department Care Team (Late st Contact Info) Description 12/27/2024 11:00 AM EST Office Visit [facility] OPTOMETRY [address] [place], [place] [phone] Hannah Cohen, OD [address] [place] [address] Scheduled Orders Name Type Priority Associated Diagnoses Orde r Schedule Vitamin B12/Folate, Serum Panel Lab Routine Weakness Expected: 12/06/2024, Expires: 12/06/2025 Bacterial Vaginosis, Yeast and Trich Microbiology Routine Vaginal discharge Expected: 12/06/2024 (Approximate), Expires: 12/06/2025 Chlamydia/N. Gonorrhoeae RNA, TMA, Vagina Microbiology Routine Vaginal discharge Ordered: 12/06/2024 Syphilis Screen Lab Routine Routine screening for STI (sexually transmitted infection) Expected: 12/06/2024 (Approximate), Expires: 12/06/2025 HIV-1/2 Antigen and Antibodies, Fourth Generation, with Reflexes Lab Routine Routine screening for STI (sexually transmitted infection) Expected: 12/06/2024 (Approximate), Expires: 12/06/2025 Hepatitis A,B,C Profile Lab Routine Routine screening for STI (sexually transmitted infection) Expected: 12/06/2024, Expires: 12/06/2025 documented as of this encounter Procedures Procedure Name Priority Date/Time Associated Diagnosis Comments VITAMIN D,25-OH,TOTAL,IA Routine 12/06/2024 11:34 AM EDT Weakness TSH W/REFLEX TO FT4 Routine 12/06/2024 1 1:34 AM EDT Weakness CBC WITH AUTO DIFFERENTIAL Routine 12/06/2024 11:34 AM EDT Weakness COMPREHENSIVE METABOLIC PANEL Routine 12/06/2024 11:34 AM EDT Weakness documented in this encounter Results * (ABNORMAL) Comprehensive Metabolic Panel (12/06/2024 11:34 AM EDT) Sodium 141 135 - 145 mmol/L [facility] Potassium 4.0 3.3 - 5.1 mmol/L [facility] Chloride 110(H) 96 - 108 mmol/L [facility] Carbon Dioxide 25 22 - 29 mmol/L [facility] Anion Gap 10(L) 12 - 20 [facility] Urea Nitrogen (BUN) 12 9 - 16 mg/dL [facility] Creatinine, Serum 0.72 0.5 - 1.4 mg/dL [facility] Estimated Glomerular Filt Rate >60 [facility] Comment:Chronic Kidney Disea se: Estimated GFR < 60 mL/min/1.30m2Seklcn Kidney Disease: Estimated GFR < 15 mL/min/1.73m2 Glucose 95 60 - 115 mg/dL [facility] Calcium 9.3 8.4 - 10.2 mg/dL [facility] Bilirubin, Total 0.4 0.0 - 1.0 mg/dL [facility] Aspartate Amino Transferase 21 5 - 31 U/L [facility] Alanine Aminotransferase 17 0 - 31 U/L [facility] Total Protein 6.6 6.5 - 8.0 g/dL [facility] Albumin Level 3.8 3.5 - 5.0 g/dL [facility] Alkaline Phosphatase 89 39 - 117 U/L [facility] Blood Venous blood specimen / Unknown 12/06/2024 11:34 AM EDT 12/06/2024 1:04 PM EDT [facility] AUDIT CLERKS SUPERVISOR LAB BLOOD ORDERABLES Final Resu lt Performing Organization Address [facility] Co de Phone Number [facility] [address] [place] [phone] * TSH W/Reflex to FT4 (12/06/2024 11:34 AM EDT) TSH reflex Free T4 0.99 0.32 - 4.0 uIU/mL [facility] Blood Venous blood specimen / Unknown 12/06/2024 11:34 AM EDT 12/06/2024 1:04 PM EDT [facility] [employer] AUDIT CLERKS SUPERVISOR LAB BLOOD ORDERABLES Final Resu lt Performing Organization Address City/[facility]/ZIP Co de Phone Number [facility] [address] [place] [phone] * (ABNORMAL) Vitamin D, 25-Hydroxy, Total, Immunoassay (12/06/2024 11:34 AM EDT) Vitamin D 25-OH Total 27.2(L) >30 ng/mL [facility] Comment: Health Based Reference Values*< 20 ng/mL Qxftwonmf45-75 ng/mL Insufficient> 30 ng/mL Sufficient*Kwame MAURICIO. N Engl J Med. 2007;357:266-280There is no well-established upper level of normal vitamin Dlevels. Some laboratories use 50 ng/mL as an upper limit ofnormal. However, toxicity is patient-dependent and may occurat any level. Careful correlation with the patient'spresentation is necessary and, if there is concern forvitamin D toxicity, treatment should be consideredirrespective of the serum level.Care must be taken in interpreting Vitamin D results fromdifferent laboratories and methodologies. Published datademonstrated that results from patients undergoinghemodialysis may show a negative bias when tested withvarious automated 25-OH vitamin D assays when compared toLC-MS/MS.When testing samples from patients whose predominant form ofVitamin D is Vitamin D2, such as patients receiving VitaminD2 supplementation, results that are subtherapeutic shouldbe confirmed with another method such as LC-MS/MS. Blood Venous blood specimen / Unknown 12/06/2024 11:34 AM EDT 12/06/2024 1:04 PM EDT Ninoska Velez NP LAB BLOOD ORDERABLES Final Resu lt [facility] [address] [place], [place] [phone] * (ABNORMAL) CBC auto differential (12/06/2024 11:34 AM EDT) White Blood Count 6.1 4.8 - 10.8 X10*3/uL [facility] Red Blood Count 3.85(L) 4.20 - 5.50 X10*6/uL [facility] Hemoglobin 11.7(L) 12.0 - 16.0 g/dl [facility] Hematocrit 36.5(L) 37.0 - 47.0 % [facility] Mean Corpuscular Volume 94.8 80.0 - 98.0 fL [facility] Mean Corpuscular Hemoglobin 30.4 27.0 - 33.0 pg [facility] Mean Corpuscular HGB Conc 32.1 31.0 - 35.0 g/dl [facility] Red Cell Distribution Width 12.8 11.0 - 16.0 % [facility] Platelet Count 187 160 - 400 X10*3/uL [facility] Mean Platelet Volume 13.0(H) 9.4 - 12.3 fL [facility] Neutrophils Percent Auto 55.2 45 - 73 % [facility] Imm Gran Pct Auto 0.3 0.0 - 0.4 % [facility] Lymphocytes Percent Auto 31.9 20 - 40 % [facility] Monocytes Percent Auto 9.0 2 - 11 % [facility] Eosinophils Percent Auto 2.8 0 - 4 % [facility] Basophils Percent Auto 0.8 0 - 2 % [facility] NRBC Pct Auto 0.0 0.0 - 0.2 /100WBC [facility] Neutrophils Absolute Auto 3.4 2.0 - 8.3 x10*3/uL [facility] Imm Gran Abs Auto 0.02 0.00 - 0.03 X10*3/uL [facility] Lymphocytes Absolute Auto 2.0 1.2 - 4.9 X10*3/uL [facility] Monocytes Absolute Auto 0.6 0.1 - 1.2 X10*3/uL [facility] Eosinophils Absolute Auto 0.2 0.0 - 0.4 X10*3/uL [facility] Basophils Absolute Auto 0.1 0.0 - 0.2 X10*3/uL [facility] NRBC Abs Auto 0.000 0.0 - 0.012 X10*3/uL [facility] Blood Venous blood specimen / Unknown 12/06/2024 11:34 AM EDT 12/06/2024 1:04 PM EDT us Ninoska Appram AUDIT CLERKS SUPERVISOR LAB BLOOD ORDERABLES Final Resu lt [facility] [address] [place] [phone] documented in this encounter Visit Diagnoses Diagnosis Chronic bilateral low back pain without sciatica- Primary Weakness Other malaise and fatigue Vaginal discharge Leukorrhea, not specified as infective Routine screening for STI (sexually transmitted infection) Screening examination for venereal disease Neck pain Cervicalgia Lumbar radiculopathy Thoracic or lumbosacral neuritis or radiculitis, unspecified Nasal congestion Other diseases of nasal cavity and sinuses Palmoplantar pustulosis Other psoriasis documented in this encounter Additional Health Concerns Assessment Noted Time PHQ-9 Depression Total Score: 7 12/07/19 25 10:39 AM EDT documented as of this encounter Care Teams Drupal Architect Relationship Specialty Start Date End Date Ninoska Velez NP [address] [place] [address] PCP - General Family Medicine 11/11/22 documented as of this encounter
[2024-12-06 13:10] LABS: MANUAL DIFF FLAG NO
[2024-12-06 13:26] LABS: Hematocrit 36.5 % (37.0-47.0); Hemoglobin 11.7 g/dl (12.0-16.0); Imm Gran Abs Auto 0.02 X10*3/uL (0.00-0.03); Imm Gran Pct Auto 0.3 % (0.0-0.4); Lymphocytes Absolute Auto 2.0 X10*3/uL (1.2-4.9); Mean Corpuscular HGB Conc 32.1 g/dl (31.0-35.0); Mean Corpuscular Hemoglobin 30.4 pg (27.0-33.0); Mean Corpuscular Volume 94.8 fL (80.0-98.0); NRBC Abs Auto 0.000 X10*3/uL (0.0-0.012); NRBC Pct Auto 0.0 /100WBC (0.0-0.2); Platelet Count 187 X10*3/uL (160-400); Red Blood Count 3.85 X10*6/uL (4.20-5.50); White Blood Count 6.1 X10*3/uL (4.8-10.8)
[2024-12-06 14:00] LABS: Alanine Aminotransferase 17 U/L (0-31); Albumin Level 3.8 g/dL (3.5-5.0); Alkaline Phosphatase 89 U/L (39-117); Anion Gap 10 (12-20); Aspartate Amino Transferase 21 U/L (5-31); Blood Urea Nitrogen 12 mg/dL (9-16); Calcium 9.3 mg/dL (8.4-10.2); Carbon Dioxide 25 mmol/L (22-29); Chloride 110 mmol/L (96-108); Estimated Glomerular Filt Rate > 60; Potassium 4.0 mmol/L (3.3-5.1); Sodium 141 mmol/L (135-145); Total Protein 6.6 g/dL (6.5-8.0)
--- OUTSIDE RECORDS SUMMARY | 2024-12-06 14:26 | XMS_ITS | Encounter Summary ---
Author Organization [employer] Address [address] [place] [address] [address] [place] [address] Care Team Providers Care Virtualization Engineer Name Role Phone Ninoska Velez NP Primary Care Provider Reason for Visit * Reason Onset Date Comments Medication Question 04/28/2023 Encounter Details Date Type Department Care Team ([facility] Contact Info) Description 04/28/2023 Telephone [facility] MEDICINE [address] [place] [address] Ninoska Velez NP [address] [place] [address] Medication Question Social History Tobacco Use Types [...] last office visit appt for pain however entry writer does not see anything on patientschart documented in this encounter Plan of Treatment Upcoming Encounters Date Type Department Care Team (Late st Contact Info) Description 12/27/2024 11:00 AM EST Office Visit [facility] OPTOMETRY [address] [place], [place] [phone] Hannah Cohen, OD [address] [place] [address] documented as of this encounter Visit Diagnoses Not on filedocumented in this encounter Additional Health Concerns Assessment Noted Time PHQ-9 Depression Total Score: 13 023 9:28 AM EDT documented as of this encounter Care Teams Virtualization Engineer Relationship Specialty Start Date End Date Ninoska Velez NP [address] [place] [address] PCP - General Family Medicine 11/11/22 documented as of this encounter
--- OUTSIDE RECORDS SUMMARY | 2024-12-06 14:26 | XMS_ITS | Encounter Summary ---
Author Organization [employer] Address [address] [place] [address] [address] [place] [address] Care Team Providers Care Bakery Clerk Name Role Phone Ninoska Velez NP Primary Care Provider [phone] Reason for Visit * Reason Onset Date Comments Reschedule 07/29/2023 Encounter Details Date Type Department Care Team ([facility] Contact Info) Description 07/29/2023 Telephone [facility] MEDICINE [address] [place] [address] Ninoska Velez NP [address] [place] [address] Reschedule Social History Tobacco Use Types Packs/Day [...] 07/28 Derm appointment. Please contact pt at [phone] documented in this encounter Plan of Treatment Upcoming Encounters Date Type Department Care Team (Late st Contact Info) Description 12/27/2024 11:00 AM EST Office Visit [facility] OPTOMETRY [address] [place] [address] [employer] Hannah, OD [address] [place] [address] documented as of this encounter Visit Diagnoses Not on filedocumented in this encounter Additional Health Concerns Assessment Noted Time PHQ-9 Depression Total Score: 10 024 2:44 PM EDT documented as of this encounter Care Teams Bakery Clerk Relationship Specialty Start Date End Date Ninoska Velez NP [address] [place] [address] PCP - General Family Medicine 11/11/22 documented as of this encounter
--- OUTSIDE RECORDS SUMMARY | 2024-12-06 14:26 | XMS_ITS | Encounter Summary ---
Author Organization [employer] Address [address] [place] [address] [address] [place] [address] Care Team Providers Care Rn Acute Dialysis Name Role Phone Ninoska Velez NP Primary Care Provider Reason for Visit * Reason Onset Date Comments Appointment Request 04/05/2023 Encounter Details Date Type Department Care Team ([facility] Contact Info) Description 04/05/2023 Telephone [facility] MEDICINE [address] [place] [address] Ninoska Velez NP [address] [place] [address] Appointment Request Social History Tobacco Use Types [...] to cancel and reschedule appt for 04/07 law writer did cancel per patients request documented in this encounter Plan of Treatment Upcoming Encounters Date Type Department Care Team (Late st Contact Info) Description 12/27/2024 11:00 AM EST Office Visit [facility] OPTOMETRY [address] [place] [address] TarHannah steve, OD [address] [place] [address] documented as of this encounter Visit Diagnoses Not on filedocumented in this encounter Additional Health Concerns Assessment Noted Time PHQ-9 Depression Total Score: 13 023 9:28 AM EDT documented as of this encounter Care Teams Rn Acute Dialysis Relationship Specialty Start Date End Date Ninoska Velez NP [address] [place] [address] PCP - General Family Medicine 11/11/22 documented as of this encounter
--- OUTSIDE RECORDS SUMMARY | 2024-12-06 14:26 | XMS_ITS | Encounter Summary ---
Author Organization [employer] Address [address] [facility] 7t [place] [address] Care Team Providers Care Wind Power Project Manager Name Role Phone Ninoska Velez NP Primary Care Provider [phone] Encounter Details Date Type Department Care Team ([facility] st Contact Info) Description 03/02/2024 Orders Only [facility] MEDICINE [address] [place] [address] Provider, MD Jose Luis Social History Tobacco [...] AM EST Office Visit [facility] [address] [place], [place] [phone] Hannah Cohen, OD [address] [place] [address] documented as of this encounter Procedures Procedure Name Priority Date/Time Associated Diagnosis Comments HM PAP/HPV Routine 05/08/2021 3:23 PM EDT documented in this encounter Results * HM PAP/HPV (05/08/2021 3:23 PM EDT) us Historical Provider HEALTH MAINTENANCE Final Result [facility] [address] [place] [address] documented in this encounter Visit Diagnoses Not on filedocumented in this encounter Additional Health Concerns Assessment Noted Time PHQ-9 Depression Total Score: 10 024 2:44 PM EDT documented as of this encounter Care Teams Wind Power Project Manager Relationship Specialty Start Date End Date Ninoska Velez NP [address] [place] [address] PCP - General Family Medicine 11/11/22 documented as of this encounter
--- OUTSIDE RECORDS SUMMARY | 2024-12-06 14:27 | XMS_ITS | Encounter Summary ---
Author Organization [employer] Address [address] [place] [address] [address] [place] [address] Care Team Providers Care Database Analyst Name Role Phone Ninoska Velez NP Primary Care Provider Reason for Visit * Reason Onset Date Comments Med Refill 11/23/2024 Encounter Details Date Type Department Care Team ([facility] st Contact Info) Description 11/23/2024 Refill [facility] MEDICINE [address] [place] [address] Ninoska Velez NP [address] [place] [address] Chronic bilateral low back pain without sciatica (Primary Dx) Social History Tobacco Use Types Packs/Day Years [...] encounter Miscellaneous Notes * Telephone Encounter - Ninoska Velez NP - 11/23/2024 6:01 PM EDT Needs appointment * Telephone Encounter - Raul Carver - 11/23/2024 3:04 PM EDT TC from pt requesting medication refill. Medications needing refill: traMADol (Ultram) 50 MG tablet To be sent to: [facility]/pharmacy #[id number] documented in this encounter Plan of Treatment Upcoming Encounters Date Type Department Care Team (Late st Contact Info) Description 12/27/2024 11:00 AM EST Office Visit [facility] OPTOMETRY [address] [place] [address] Hannah Cohen, OD [address] [place] [address] documented as of this encounter Visit Diagnoses Diagnosis Chronic bilateral low back pain without sciatica- Primary documented in this encounter Additional Health Concerns Assessment Noted Time PHQ-9 Depression Total Score: 8 04/24/19 25 12:06 PM EDT documented as of this encounter Care Teams Database Analyst Relationship Specialty Start Date End Date Ninoska Velez NP [address] [place] [address] PCP - General Family Medicine 11/11/22 documented as of this encounter
--- OUTSIDE RECORDS SUMMARY | 2024-12-06 14:27 | XMS_ITS | Clinical Summary ---
Author Organization [employer] Address [address] [place] [address] 7[address] [place] [address] Care Team Providers Care Bone Char Kiln Tender Name Role Phone Ninoska Velez NP Primary Care Provider [phone] Allergies No known active allergies Medications * [...] of breath. 18 g 3 023 Active ferrous gluconate (Fergon) 324 (38 Fe) MG tabletIndications :Iron deficiency anemia due to chronic blood loss TAKE 1 TABLET BY MOUTH EVERY DAY ON TUESDAY, TUESDAY, AND TUESDAY WITH ORANGE JUICE 90 tablet 3 023 Active sertraline (Zoloft) 100 MG tabletIndications :Anxiety TAKE 1 TABLET BY MOUTH IN THE MORNING. 90 tablet 1 024 Active gabapentin (Neurontin) 300 MG capsuleIndication [...] with naproxen 9 tablet 1 025 Active Sronyx 0.1-20 MG-MCG tablet Take 1 tablet by mouth Once per day. 28 tablet 025 Active ulipristal (Carmella) 30 mg tablet Take one tablet by mouth up to five days after sex. Do not use more than once per menstrual cycle. Wait 5 days to restart control pill, use condoms until 7 days after restarting pill 1 tablet 025 Active cyclobenzaprine (Flexeril) 10 MG tabletIndications :Chronic bilateral low back pain without sciatica,Neck pain Take 1 tablet (10 mg) by mouth every 8 (eight) hours if needed for muscle spasms for up to 10 days. 30 tablet 025 2024 Active Lidoderm 5 % patchIndications: Chronic bilateral low back pain without sciatica Apply 1 patch topically Once per day. Remove & discard patch within 12 hours or as directed by MD. 30 patch 2 Active ibuprofen 600 MG tabletIndications :Chronic bilateral low back pain without sciatica TAKE 1 TABLET BY MOUTH EVERY 6 HOURS NEEDED FOR MILD PAIN FOR UP TO 14 DAYS 56 tablet Active fluticasone (Flonase) 50 MCG/ACT nasal sprayIndications: Nasal congestion SPRAY 1 SPRAY INTO EACH NOSTRIL TWICE A DAY. SHAKE GENTLY. BEFORE FIRST USE, PRIME PUMP. AFTER USE, CLEAN TIP AND REPLACE CAP. 48 g Active calcipotriene (Dovonex) 0.005 % ointmentIndicatio ns:Palmoplantar pustulosis APPLY TOPICALLY TWICE A DAY 60 g 025 Active halobetasol (UltraVATE) 0.05 % ointmentIndicatio ns:Palmoplantar pustulosis APPLY TOPICALLY TWICE A DAY 50 g Active Diclofenac Sodium 1 % gelIndications:Ch ronic bilateral low back pain without sciatica Apply 2 g topically if needed in the morning and at bedtime (Back pain). 100 g 3 025 Active fluticasone (Flonase) 50 MCG/ACT nasal sprayIndications: Nasal congestion Administer 1 spray into each nostril 2 times daily. Shake gently. Before first use, prime pump. After use, clean tip and replace cap. 16 g 2 023 2024 Discontinued(R eorder (will not trigger notification to Pharmacy)) cyclobenzaprine (Flexeril) 10 MG tabletIndications :Neck pain Take 1 tablet (10 mg) by mouth every 8 (eight) hours if needed for muscle spasms for up to 10 days. 30 tablet 024 2024 Discontinued(R eorder (will not trigger notification to Pharmacy)) Diclofenac Sodium 1 % gelIndications:Ch ronic bilateral low back pain without sciatica Apply 2 g topically if needed in the morning and at bedtime (Back pain). 100 g 3 024 2024 Discontinued(R eorder (will not trigger notification to Pharmacy)) Lidoderm 5 % patchIndications: Lumbar radiculopathy Apply 1 patch topically Once per day. Remove & discard patch within 12 hours or as directed by . 30 patch 2 2024 Discontinued(R eorder (will not trigger notification to Pharmacy)) halobetasol (UltraVATE) 0.05 % ointmentIndicatio ns:Palmoplantar pustulosis Apply topically 2 times daily. 50 g 2 2024 Discontinued(R eorder (will not trigger notification to Pharmacy)) calcipotriene (Dovonex) 0.005 % ointmentIndicatio ns:Palmoplantar pustulosis Apply topically 2 times daily. 60 g 2 2024 Discontinued(R eorder (will not trigger notification to Pharmacy)) fluticasone (Flonase) 50 MCG/ACT nasal sprayIndications: Nasal congestion SPRAY 1 SPRAY INTO EACH NOSTRIL TWICE A DAY. SHAKE GENTLY. BEFORE FIRST USE, PRIME PUMP. AFTER USE, CLEAN TIP AND REPLACE CAP. 48 g 2024 Discontinued(R eorder (will not trigger notification to Pharmacy)) halobetasol (UltraVATE) 0.05 % ointmentIndicatio ns:Palmoplantar pustulosis APPLY TOPICALLY TWICE A DAY 50 g 025 2024 Discontinued(R eorder (will not trigger notification to Pharmacy)) calcipotriene (Dovonex) 0.005 % ointmentIndicatio ns:Palmoplantar pustulosis APPLY TOPICALLY TWICE A DAY 60 g 2024 Discontinued(R eorder (will not trigger notification to Pharmacy)) ibuprofen 600 MG tablet TAKE 1 TABLET BY MOUTH EVERY 6 HOURS NEEDED FOR MILD PAIN FOR UP TO 14 DAYS 56 tablet 2024 Discontinued(R eorder (will not trigger notification to Pharmacy)) Active Problems Problem Noted Date Diagnosed Date Class 1 obesity 08/31/2024 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 Assessment & Plan (12/06/2024 11:19 AM EDT): Orders: calcipotriene (Dovonex) 0.005 % ointment; APPLY TOPICALLY TWICE A DAY halobetasol (UltraVATE) 0.05 % ointment; APPLY TOPICALLY TWICE A DAY Assessment & Plan (06/05/2024 9:32 AM EDT): -refill provided per patient request Assessment & Plan (02/17/2024 5:50 PM EST): Steroids prescribed, will f.up to assess improvement Lumbar radiculopathy 12/02/2023 Assessment & Plan (12/06/2024 11:19 AM EDT): Assessment & Plan (04/23/2024 1:17 PM EDT): [...] will send a referral to PT to [facility] as she has an appt this [...] above Neck pain 09/14/2023 Assessment & Plan (12/06/2024 11:19 AM EDT): Orders: cyclobenzaprine (Flexeril) 10 MG tablet; Take 1 tablet (10 mg) by mouth every 8 (eight) hours if needed for muscle spasms for up to 10 days. Assessment & Plan (11/08/2023 5:17 PM EDT): [...] as well -labs ordered Moderate episode of recurren t major depressive disorder (CMS/HCC) 12/02/2022 Assessment & Plan (04/23/2024 1:19 PM [...] f/u with current OP provider Surjit at [facility]. Sari agrees to follow up if needed. [...] Aggravated by season changes/weather Assessment & Plan (12/06/2024 11:19 AM EDT): Orders: fluticasone (Flonase) 50 MCG/ACT nasal spray; SPRAY 1 SPRAY INTO EACH NOSTRIL TWICE A DAY. SHAKE GENTLY. BEFORE FIRST USE, PRIME PUMP. AFTER USE, CLEAN TIP AND REPLACE CAP. Assessment & Plan (11/11/2022 12:20 PM EDT): [...] of supports. PLAN: 1. Follow up with [facility]: Recommended for follow-up: 1 week follow up 12/07 @ 12pm 2. Patient goal is to improve mental health and explore psych med management 3. Behavioral Recommendations a. Continue OP therapy with Surjit Goode @ [facility] b. F/u next week with [facility] c. Clinician to consult with PCP to [...] (11/11/2022): Chronic back pain still present Referred [facility] Pain medicine in the past Never contacted Pain mgmt Assessment & Plan (12/06/2024 11:19 AM EDT): Orders: cyclobenzaprine (Flexeril) 10 MG tablet; Take [...] the morning and at bedtime (Back pain). Assessment & Plan (06/05/2024 9:41 AM EDT): [...] importance of maintaining physical activity -follow-up with [facility]. Assessment & Plan (05/16/2023 [...] medications on file -was previously referred to [facility] pain management but did not follow through -patient reports no help from PT -will trial lidocaine topical patch Assessment & Plan (11/11/2022 12:25 PM EDT): Will refill voltaren gel, ibuprofen 600 mg, Tylenol 500 mg, Lidocaine patches Refer to Pain medicine again F/U PRN Encounters Date Type Department Care Team Description 12/06/2024 10:00 AM EDT Office Visit [facility] [address] [place] [phone] Ninoska Velez NP Chronic bilateral low back pain without sciatica (Primary Dx); Weakness; Vaginal discharge; Routine screening for STI (sexually transmitted infection); Neck pain; Lumbar radiculopathy; Nasal congestion; Palmoplantar pustulosis 12/06/2024 Travel 12/05/2024 Telephone [facility] [address] [place] [address] Ninoska Velez NP Chart Prep 11/29/2024 Patient Outreach [facility] [address] [place] [address] Ninoska Velez NP Pre-visit Planning ([facility] was already completed ) 11/27/2024 Refill [facility] [address] [place] [address] Ninoska Velez NP Palmoplantar pustulosis 11/23/2024 Refill [facility] [address] [place] [address] Ninoska Velez NP Chronic bilateral low back pain without sciatica (Primary Dx) 11/23/[address] [address] IrvinmNinoska NP Nasal congestion 11/20/[address] [address] Ana Carlisle, DO No Show 11/15/[address] [address] AppramNinoska, MACHINE HAND Chart Prep 11/15/[address] [address] AppramNinoska, MACHINE HAND Nurse Triage 11/12/[address] [address] AppramNinoska, MACHINE HAND Nurse Triage 10/15/[address] [address] AppramNinoska, MACHINE HAND Nurse Triage 10/01/[address] [address] AppramNinoska MACHINE HAND CHART PREP 09/18/[address] [address] Hugo Chaney [place] november recall from Last 3 Months Immunizations Immunization Administration [...] Mass Index 30.07 12/06/2024 10:36 AM EDT Plan of Treatment Upcoming Encounters Date Type Department Care Team (Late st Contact Info) Description 12/27/2024 11:00 AM EST Office Visit [facility] [address] [place] [address] Hannah Cohen, OD [address] [place] [address] Health Maintenance Due Date Last Done Comments HPV Vaccines (1 - 3-dose series) 04/30/2006 Pneumococcal Vaccine: Pediatrics (0 to 5 Years) and At-Risk Patients (6 to 49) Years (1 of 2 - PCV) 04/30/2010 COVID-19 Vaccine ( - 2024-2 6 season) 2024 10/30/2020, 10/09/2020 Influenza Vaccine (#1) 2024 , 11/29/2018 Alcohol/Substance Use Screening 12/15/2024 12/16/2023 SDOH Screening 03/23/2025 03/23/2024 Family Planning (PISQ) 05/23/2025 05/23/2024 Disability Screening 06/04/2025 06/04/2024 Depression Screening 12/06/2025 12/06/2024, 12/06/2024 Tobacco Screening 12/06/2025 12/06/2024 Cervical Cancer Screening 05/23/2029 HPV/Cotest 05/23/2029 05/23/2024 [...] Procedure Name Priority Date/Time Associated Diagnosis Comments COMPREHENSIVE METABOLIC PANEL Routine 12/06/2024 11:34 AM EDT Weakness TSH W/REFLEX TO FT4 Routine 12/06/2024 1 1:34 AM EDT Weakness VITAMIN D,25-OH,TOTAL,IA Routine 12/06/2024 11:34 AM EDT Weakness CBC WITH AUTO DIFFERENTIAL Routine 12/06/2024 11:34 AM EDT Weakness HPV DNA, LOW/HIGH RISK Routine 11:05 AM EDT PAP SMEAR Routine 05/23/2024 11:05 AM EDT Routine cervical smear ZZZ HISTORICAL HEPATITIS C AB W/REFL TO HCV RNA, QN, PCR Routine 09/01/2021 1:41 PM EDT HIV 1/2 ANTIGEN/ANTIBODY, FOURTH GENERATION W/RFL Routine 09/01/2021 1:41 PM EDT from Last 3 Months or Most Recently Relevant to Health Maintenance Results * (ABNORMAL) Vitamin D, 25-Hydroxy, Total, Immunoassay (12/06/2024 11:34 AM EDT) Vitamin D 25-OH Total 27.2(L) >30 ng/mL [facility] Comment: Health Based Reference Values*< 20 ng/mL [id number] ng/mL Insufficient> 30 ng/mL Sufficient*Kwame MAURICIO. N [...] 11:34 AM EDT 12/06/2024 1:04 PM EDT [facility] LAB BLOOD ORDERABLES Final Resu lt Performing Organization Address [facility] [place]/[facility]/ZIP Co de Phone Number [facility] [address] [place] [phone] * TSH W/Reflex to FT4 (12/06/2024 11:34 AM EDT) TSH reflex Free T4 0.99 0.32 - 4.0 uIU/mL [facility] Blood Venous blood specimen / Unknown 12/06/2024 11:34 AM EDT 12/06/2024 1:04 PM EDT [facility] LAB BLOOD ORDERABLES Final Resu lt Performing Organization Address [facility] [place]/ZIP Co de Phone Number [facility] [address] [place] [phone] * (ABNORMAL) CBC auto differential (12/06/2024 11:34 AM EDT) White Blood Count 6.1 4.8 - 10.8 X10*3/uL [facility] Red Blood Count 3.85(L) 4.20 - 5.50 X10*6/uL [facility] Hemoglobin 11.7(L) 12.0 - 16.0 g/dl [facility] Hematocrit 36.5(L) 37.0 - 47.0 % [facility] Mean Corpuscular Volume 94.8 80.0 - 98.0 fL [facility] Mean Corpuscular Hemoglobin 30.4 27.0 - 33.0 pg [facility] Mean Corpuscular HGB Conc 32.1 31.0 - 35.0 g/dl [facility] Red Cell Distribution Width 12.8 11.0 - 16.0 % [facility] Platelet Count 187 160 - 400 X10*3/uL [facility] Mean Platelet Volume 13.0(H) 9.4 - 12.3 fL [facility] Neutrophils Percent Auto 55.2 45 - 73 % [facility] Imm Gran Pct Auto 0.3 0.0 - 0.4 % [facility] Lymphocytes Percent Auto 31.9 20 - 40 % [facility] Monocytes Percent Auto 9.0 2 - 11 % [facility] Eosinophils Percent Auto 2.8 0 - 4 % [facility] Basophils Percent Auto 0.8 0 - 2 % [facility] NRBC Pct Auto 0.0 0.0 - 0.2 /100WBC [facility] Neutrophils Absolute Auto 3.4 2.0 - 8.3 x10*3/uL [facility] Imm Gran Abs Auto 0.02 0.00 - 0.03 X10*3/uL [facility] Lymphocytes Absolute Auto 2.0 1.2 - 4.9 X10*3/uL [facility] Monocytes Absolute Auto 0.6 0.1 - 1.2 X10*3/uL [facility] Eosinophils Absolute Auto 0.2 0.0 - 0.4 X10*3/uL [facility] Basophils Absolute Auto 0.1 0.0 - 0.2 X10*3/uL [facility] NRBC Abs Auto 0.000 0.0 - 0.012 X10*3/uL [facility] Blood Venous blood specimen / Unknown 12/06/2024 11:34 AM EDT 12/06/2024 1:04 PM EDT us Ninoska Appram MACHINE HAND LAB BLOOD ORDERABLES Final Resu lt [facility] [address] [place], [place] [phone] * (ABNORMAL) Comprehensive Metabolic Panel (12/06/2024 11:34 AM EDT) Sodium 141 135 - 145 mmol/L [facility] Potassium 4.0 3.3 - 5.1 mmol/L [facility] Chloride 110(H) 96 - 108 mmol/L [facility] Carbon Dioxide 25 22 - 29 mmol/L [facility] Anion Gap 10(L) 12 - 20 [facility] Urea Nitrogen (BUN) 12 9 - 16 mg/dL [facility] Creatinine, Serum 0.72 0.5 - 1.4 mg/dL [facility] Estimated Glomerular Filt Rate >60 [facility] Comment:Chronic Kidney Disea se: Estimated GFR < 60 mL/min/1.49q7Soddvk Kidney Disease: Estimated GFR < 15 mL/min/1.73m2 Glucose 95 60 - 115 mg/dL [facility] Calcium 9.3 8.4 - 10.2 mg/dL [facility] Bilirubin, Total 0.4 0.0 - 1.0 mg/dL [facility] Aspartate Amino Transferase 21 5 - 31 U/L [facility] Alanine Aminotransferase 17 0 - 31 U/L [facility] Total Protein 6.6 6.5 - 8.0 g/dL [facility] Albumin Level 3.8 3.5 - 5.0 g/dL [facility] Alkaline Phosphatase 89 39 - 117 U/L [facility] Blood Venous blood specimen / Unknown 12/06/2024 11:34 AM EDT 12/06/2024 1:04 PM EDT Ninoska Irvinkurtis MACHINE HAND LAB BLOOD ORDERABLES Final Resu lt Performing Organization Address City/[facility]/ZIP Co de Phone Number [facility] [address] [place] [phone] * HPV DNA, Low/High Risk (05/23/2024 11:05 AM EDT) HPV High Risk Negative Negative [facility] HPV Genotype 16 Negative Negative [facility] HPV Genotype 18 Negative Negative [facility] Comment:HPV testing performe d at [facility] (CLIA#[id number]), [address] [place] [address].Testing for HPV was performed using the Taylor [...] 5 AM EDT 05/24/2024 9:48 AM EDT Eden KIRANM LAB BLOOD ORDERABLES Nighat l Result Performing Organization Address City/[facility]/ZIP Co de Phone Number [facility] [address] [place] [phone] * Pap Smear (05/23/2024 11:05 AM EDT) Swab Cervix uteri structure / Unknown 05/23/2024 11:05 AM EDT 05/24/2024 9:48 AM EDT [facility] - 05/28/2024 11:22 AM EDT ----- ------- Name: FlorSari Jose Age/Sex: 34/F : 1990 Unit#: [id number] Attend Dr: EDEN BARDALES CNM Re05/23/24 Status: [facility]: [facility] ------- SPEC : [id number] RECD: 05/24/2448 STATUS: DAMIEN BIJAN NUM: [id number] SOPHIA: 05/23/24-[address] [facility] [address]: EDEN BARDALES CNM ENTERED: 05/24/24-1011 SP TYPE: Pap Smr OTHR : ORDERED: Pap Smear Interpretation Satisfactory for evaluation. Negative for intraepithelial lesion or malignancy. No endocervical cells seen. HPV High Risk: Negative HPV Genotyping 16: Negative HPV Genotyping 18: Negative Clinical Information LMP: 04/21/2024 Previous PAP test: 2021, WNL Other history:Oral contraceptive Material Received ThinPrep-Cervical ----- ------- Signed (signature on file) Wendy Manzano CT (ASC) 05/28/24 1122 ----- ------- END OF REPORT Eden Bardales [facility] LAB CYTOLOGY ORDERABLES F inal Result Performing Organization Address [facility] [place]/ZIP Co de Phone Number [facility] [address] [place] [phone] * HEPATITIS C AB W/REFL TO HCV RNA, QN, PCR (09/01/2021 1:41 PM EDT) HEPATITIS C ANTIBODY NON-REACT ALIVIA NON-REACT ALIVIA [facility] INDEX 0.08 <1.00 [facility] Comment: HCV antibody was non-reactive. There is no laboratory evidence of HCV infection. In most cases, no further action is required. However, if recent HCV exposure is suspected, a test for HCV RNA (test code 51100) is suggested. For additional information please refer to http://education.[employer]/faq/LUJ04m7 (This link is being provided for informational/ educational purposes only.) 09/01/2021 1:41 PM EDT [facility] HISTORICAL/NON ORDERABLE LABS Final Result Performing Organization Address City/[facility]/ZIP Co de Phone Number [facility] [address] * HIV 1/2 ANTIGEN/ANTIBODY,FOURTH GENERATION W/RFL (09/01/2021 1:41 PM EDT) HIV-1/2 ANTIGEN AND ANTIBODIES, 4TH GENERATION W/ REFLEX NON-REACT ALIVIA NON-REACT ALIVIA [facility] Comment: HIV-1 antigen and HIV-1/HIV-2 antibodies were not detected. There is no laboratory evidence of HIV infection. PLEASE NOTE: This information has been disclosed to you from records whose confidentiality may be protected by state law. If your state requires such protection, then the state law prohibits you from making any further disclosure of the information without the specific written consent of the person to whom it pertains, or as otherwise permitted by law. A general authorization for the release of medical or other information is NOT sufficient for this purpose. For additional information please refer to http://education.[employer]/faq/EJR724 (This link is being provided for informational/ educational purposes only.) The performance of this assay has not been clinically validated in patients less than 2 years old. 09/01/2021 1:41 PM EDT [facility] LAB BLOOD ORDERABLES Final Re sult [facility] [address] from Last 3 Months or Most Recently Relevant to Health Maintenance [place] [address] [place] [address] C3 GENERIC TPL Care Teams Bone Char Kiln Tender Relationship Specialty Start Date End Date Ninoska Velez NP [address] [place] [phone] PCP - General Family Medicine 11/11/22
--- OUTSIDE RECORDS SUMMARY | 2024-12-06 14:27 | XMS_ITS | Encounter Summary ---
Author Organization [employer] Address [address] [facility] [address] [place] [address] Care Team Providers Care Wad Blanking Press Adjuster Name Role Phone Ninoska Velez NP Primary Care Provider [phone] Encounter Details Date Type Department Care Team (Latest Contact Info) Description 12/06/2024 Travel Social History Tobacco Use Types Packs/Day [...] AM EDT documented as of this encounter Functional Status * Over the past 2 weeks, how often have you been bothered by any of the following problems? Question Answer Date of Assessment Author Patient Health Questionnaire -2 Score 2 12/06/2024 10:39 AM LAURIT Hugo Chaney [place] * Little interest or pleasure in doing things Answer Date of Assessment Author Several days 12/06/2024 10:39 AM Hugo Call [place] * Feeling down, depressed, or hopeless Answer Date of Assessment Author Several days 12/06/2024 10:39 AM Hugo Call [place] * Trouble falling or staying asleep, or sleeping too much Answer Date of Assessment Author More than half the days 12/06/2024 10:39 AM Hugo Call MA * Feeling tired or having little energy Answer Date of Assessment Author More than half the days 12/06/2024 10:39 AM Hugo Call MA * Poor appetite or overeating Answer Date of Assessment Author Several days 12/06/2024 10:39 AM Hugo Call MA * Feeling bad about yourself - [...] or on edge 1 12/06/2024 10:39 AM Hugo Call MA Not being able to stop or co ntrol worrying 1 12/06/2024 10:39 AM Hugo Call MA Worrying too much about diff erent things 3 12/06/2024 10:39 AM Hugo Call MA Trouble relaxing 3 12/06/2024 10:39 AM Hugo Call MA Being so restless that it is hard to sit still 1 12/06/2024 10:39 AM Hugo Call MA Becoming easily annoyed or irritable 1 12/06/2024 10:39 AM Hugo Call MA Feeling afraid as if somethi ng awful might happen 1 12/06/2024 10:39 AM Hugo Call MA PAYTON-7 Total Score 11 12/06/2024 10:39 AM Hugo Call MA documented as of this encounter Plan of Treatment Upcoming Encounters Date Type Department Care Team (Late st Contact Info) Description 12/27/2024 11:00 AM EST Office Visit [facility] [address] [place] [address] Hannah Cohen, OD [address] [place] [address] documented as of this encounter Visit Diagnoses Not on filedocumented in this encounter Additional Health Concerns Assessment Noted Time PHQ-9 Depression Total Score: 7 12/07/19 25 10:39 AM EDT documented as of this encounter Care Teams Wad Blanking Press Adjuster Relationship Specialty Start Date End Date Ninoska Velez NP [address] [place] [address] PCP - General Family Medicine 11/11/22 documented as of this encounter
--- OUTSIDE RECORDS SUMMARY | 2024-12-06 14:27 | XMS_ITS | Encounter Summary ---
Author Organization [employer] Address [address] [place] [address] [address] [place] [address] Care Team Providers Care Stripping Shovel Oiler Name Role Phone Ninoska Velez NP Primary Care Provider Reason for Visit * Reason Onset Date Comments Results 02/02/2023 Encounter Details Date Type Department Care Team ([facility] Contact Info) Description 02/02/2023 Telephone [facility] [address] [place] [address] Ninoska Velez NP [address] [place] [address] Results Social History Tobacco Use Types Packs/Day [...] Upcoming Encounters Date Type Department Care Team ([facility] st Contact Info) Description 12/27/2024 11:00 AM EST Office Visit [facility] [address] [place], [place] [phone] Hannah Cohen, OD [address] [place] [address] documented as of this encounter Visit Diagnoses Not on filedocumented in this encounter Additional Health Concerns Assessment Noted Time PHQ-9 Depression Total Score: 13 023 9:28 AM EDT documented as of this encounter Care Teams Stripping Shovel Oiler Relationship Specialty Start Date End Date Ninoska Velez NP [address] [place], [place] [phone] PCP - General Family Medicine 11/11/22 documented as of this encounter
--- OUTSIDE RECORDS SUMMARY | 2024-12-06 14:27 | XMS_ITS | Encounter Summary ---
Author Organization [employer] Address [address] [facility] [address] [place] [address] Care Team Providers Care Farm Equipment Mechanic Apprentice Name Role Phone Ninoska Velez NP Primary Care Provider Encounter Details Date Type Department Care Team ([facility] Contact Info) Description 06/25/2024 Telephone C OPTOMETRY [address] [place], [place] [phone] Hannah Cohen, OD [address] [place] [address] Social History Tobacco Use Types Packs/Day Years [...] Description 12/27/2024 11:00 AM EST Office Visit [facility] OPTOMETRY [address] [place] [address] Hannah Cohen, OD [address] [place] [address] documented as of this encounter Visit Diagnoses Not on filedocumented in this encounter Additional Health Concerns Assessment Noted Time PHQ-9 Depression Total Score: 8 04/24/19 25 12:06 PM EDT documented as of this encounter Care Teams Farm Equipment Mechanic Apprentice Relationship Specialty Start Date End Date Ninoska Velez NP [address] [place] [address] PCP - General Family Medicine 11/11/22 documented as of this encounter
--- OUTSIDE RECORDS SUMMARY | 2024-12-06 14:27 | XMS_ITS | Encounter Summary ---
Author Organization [employer] Address [address] [place] [address] [address] [place] [address] Care Team Providers Care Communications Director Name Role Phone Ninoska Velez NP Primary Care Provider Encounter Details Date Type Department Care Team (Late Contact Info) Description 02/17/2023 Abstract [facility] MEDICINE [address] [place] [address] Ninoska Velez NP [address] [place] [address] Social History Tobacco Use Types Packs/Day Years [...] Department Care Team (Late Contact Info) Description 12/27/2024 11:00 AM EST Office Visit [facility] OPTOMETRY [address] [place] [address] Hannah Cohen, OD [address] [place] [address] documented as of this encounter Visit Diagnoses Not on filedocumented in this encounter Additional Health Concerns Assessment Noted Time PHQ-9 Depression Total Score: 13 023 9:28 AM EDT documented as of this encounter Care Teams Communications Director Relationship Specialty Start Date End Date Ninoska Velez NP [address] [place] [id number] PCP - General Family Medicine 11/11/22 documented as of this encounter
--- OUTSIDE RECORDS SUMMARY | 2024-12-06 14:27 | XMS_ITS | Encounter Summary ---
Author Organization [employer] Address [address] [facility] [address] [place] [address] Care Team Providers Care Drilling Contractor Name Role Phone Ninoska Velez NP Primary Care Provider Reason for Visit * Reason Onset Date Comments Chart Prep 12/05/2024 Encounter Details Date Type Department Care Team ([facility] st Contact Info) Description 12/05/2024 Telephone [facility] [address] [place] [address] Ninoska Velez NP [address] [place] [address] Chart Prep Social History Tobacco Use Types Packs/Day Years [...] encounter Miscellaneous Notes * Telephone Encounter - Amari Mayberry [place] - 12/05/2024 10:21 AM EDT Chart Prep Labs: done Images: done Referrals: complete Vaccines due: Covid, Flu, PCV20, and HPV Screenings: not applicable Overdue care gaps: Tobacco documented in this encounter Plan of Treatment Upcoming Encounters Date Type Department Care Team (Late st Contact Info) Description 12/27/2024 11:00 AM EST Office Visit [facility] OPTOMETRY [address] [place] [address] Hannah Cohen, OD [address] [place] [address] documented as of this encounter Visit Diagnoses Not on filedocumented in this encounter Additional Health Concerns Assessment Noted Time PHQ-9 Depression Total Score: 8 04/24/19 25 12:06 PM EDT documented as of this encounter Care Teams Drilling Contractor Relationship Specialty Start Date End Date Ninoska Velez NP [address] [place] [address] PCP - General Family Medicine 11/11/22 documented as of this encounter
[2024-12-06 14:48] LABS: Folate 8.9 ng/mL (> or = 4.0); Vitamin B12 386 pg/mL (200-900)
[2024-12-07 02:02] LABS: Bacterial Vaginosis PCR NEGATIVE (Negative); Candida Group PCR DETECTED (Not Detect); Candida glab krusei PCR NOT DETECTED (Not Detect); Trichomonas vaginalis PCR NOT DETECTED (Not Detect)
[2024-12-07 02:34] LABS: CT PCR NOT DETECTED (Not Detect.); NG PCR NOT DETECTED (Not Detect.)
[2024-12-07 04:23] LABS: Syphilis Screen Nonreactive (Nonreactive)
[2024-12-07 04:27] LABS: HIV Num 1 0.06 S/CO (0.00-0.99)
[2024-12-07 04:30] LABS: Hepatitis A Antibody IgM 0.22 Index (0-0.79); ~Hepatitis A Antibody IgM Nonreactive (Nonreactive)
[2024-12-07 04:54] LABS: HBS Num1 315.38 mIU/mL (0-7.99); HBc Num1 0.07 S/CO (0.00-0.79); HBsAGNum1 0.48 S/CO (0.00-0.99); Hepatitis B Surface Antigen Negative (Negative); ~HepC Num1 0.08 S/CO (0.00-0.79); ~Hepatitis B Surface Antibody REACTIVE (Nonreactive); ~Hepatitis C Antibody Nonreactive (Nonreactive)
[2024-12-07 09:32] LABS: Iron 60 mcg/dL (30-160); Percent Iron Saturation 19 % (15-50); Total Iron Binding Capacity 312 mcg/dL (228-428); Unsaturated Iron Binding 252 ug/dL
[2024-12-07 09:52] LABS: Ferritin 12 ng/mL (10-122)
== END 2024-12-06 11:30 | disposition home or self-care (01) ==
LOC: HO.HHCL 11:29
PROVIDERS: Internal Medicine; PCP Nurse Practitioner; Visit Provider Nurse Practitioner
DX: N89.8 Other specified noninflammatory disorders of vagina (principal); L40.3 Pustulosis palmaris et plantaris; R53.1 Weakness; Z11.59 Encounter for screening for other viral diseases; Z11.4 Encounter for screening for human immunodeficiency virus [HIV]; Z20.2 Contact with and (suspected) exposure to infections with a predominantly sexual mode of transmission
CPT/HCPCS: 36415; 80053; 81515; 82306; 82607; 82728; 82746; 83540; 84443; 85025; 86704; 86706; 86709; 86780; 86803; 87340; 87389; 87491; 87591